=== PATIENT | female | born 1970 | race African-American/Black ===

== ENCOUNTER 2016-07-23 03:43 | Emergency (ER) | payer MEDICAID, OTHER ==
[~2016-07-23] VITALS: Ht 172.7 cm; Wt 108.9 kg
[2016-07-23 04:15] LABS: Basophils # (auto) 0.1 uL; Basophils % (auto) 0.4 % (0.0-2.0); DEFINITIVE VIEW TRANSMISSION; Eosinophils # (auto) 0.1 uL; Eosinophils % (auto) 0.9 % (0.0-7.0); Hematocrit 43.8 % (36.0-46.0); Hemoglobin 14.6 g/dL (12.2-16.2); Lymphocytes # (auto) 6.3 uL; Lymphocytes % (auto) 45.2 % (10.0-50.0); Mean Corpuscular Hgb Conc. 33.5 g/dL (32.0-36.0); Mean Corpuscular Volume 89.4 fL (80.0-100.0); Mean Platelet Volume 9.3 fL (7.4-10.4); Monocytes # (auto) 0.3 uL; Neutrophils # (auto) 7.2 uL; Neutrophils % (auto) 51.5 % (37.0-80.0); Platelet Count (auto) 305 10^3/uL (140-450); Red Cell Distribution Width 14.7 % (11.6-16.0)
[2016-07-23 04:31] LABS: INR 0.93 (0.9-1.15)
[2016-07-23 04:35] LABS: Albumin 3.7 g/dL (3.4-5.0); Alkaline Phosphatase 71 U/L (45-117); Anion Gap 10 (5-15); Aspartate Aminotransferase 25 U/L (15-37); BUN/Creatinine Ratio 15.3; Bilirubin, Total 0.3 mg/dL (0.2-1.0); Blood Urea Nitrogen 13 mg/dL (7-18); Calcium 9.5 mg/dL (8.5-10.1); Carbon Dioxide 26 mmol/L (21-32); Chloride 107 mmol/L (98-107); GFR African American 92 mL/min; GFR Non-African American 76 mL/min; Glucose 109 mg/dL (74-106); Potassium 4.1 mmol/L (3.5-5.1); Sodium 143 mmol/L (136-145); Total Protein 8.1 g/dL (6.4-8.2)
[2016-07-23] MEDS ORDERED: ONDANSETRON HCL 4 MG/2 ML VIAL IV ONE (05:15)
[2016-07-23] MEDS ORDERED: MORPHINE SULFATE 4 MG/ML SYRG IV ONE (05:15)
[2016-07-23 06:03] VITALS: BP 121/82
[2016-07-23] MEDS ORDERED: ASPirin 81 mg TAB PO ONE (06:15)
== END 2016-07-23 07:01 | disposition home or self-care (01) ==
LOC: ER 03:45
DX: R07.89 Other chest pain (principal); J20.9 Acute bronchitis, unspecified; F17.210 Nicotine dependence, cigarettes, uncomplicated; I10 Essential (primary) hypertension
CPT/HCPCS: 36415; 71010; 80053; 84484; 85025; 85610; 85730; 93005; 94761; 96374; 96375; 99285; J2270; J2405

== ENCOUNTER 2023-03-23 21:23 | Emergency (ER) | payer SELFPAY ==
[~2023-03-23] VITALS: Ht 167.6 cm; Wt 113.6 kg
[2023-03-23 21:36] VITALS: PULSE 107
[2023-03-23 21:49] VITALS: BP 115/76; RESP 16; O2SAT 97
[2023-03-23 23:01] LABS: Basophils # (auto) 0.1 10 ^3/uL (0-0.2); Basophils % (auto) 0.6 % (0.0-2.0); Eosinophils # (auto) 0.1 10 ^3/uL (0-0.8); Eosinophils % (auto) 1.1 % (0.0-7.0); Hematocrit 43.9 % (36.0-46.0); Hemoglobin 14.4 g/dL (12.2-16.2); Lymphocytes # (auto) 5.7 10 ^3/uL (0.4-5.4); Lymphocytes % (auto) 50.9 % (10.0-50.0); Mean Corpuscular Hemoglobin 30.1 pg (28.0-32.0); Mean Corpuscular Hgb Conc. 32.8 g/dL (32.0-36.0); Mean Corpuscular Volume 91.8 fL (80.0-100.0); Monocytes # (auto) 0.5 10 ^3/uL (0-1.3); Monocytes % (auto) 4.2 % (0.0-12.0); Neutrophils # (auto) 4.9 10 ^3/uL (1.6-8.6); Neutrophils % (auto) 43.2 % (37.0-80.0); Red Blood Cells 4.78 10^6/uL (4.0-5.20); Red Cell Distribution Width 14.2 % (11.8-14.3); White Blood Cell 11.3 10^3/uL (4.4-10.8)
[2023-03-23 23:19] LABS: INR 0.99 (0.9-1.15); Partial Thromboplastin Time 27.1 SEC (24.5-34.5); Prothrombin Time 10.4 sec (9.3-11.8)
[2023-03-23 23:23] LABS: Alanine Aminotransferase 33 U/L (7-40); Albumin 4.4 g/dL (3.2-4.8); Alkaline Phosphatase 72 U/L (46-116); Anion Gap 9 (5-15); Aspartate Aminotransferase 29 U/L (13-40); BUN/Creatinine Ratio 16.9 (10.0-20.0); Blood Urea Nitrogen 11 mg/dL (9-23); Calcium 9.3 mg/dL (8.7-10.4); Carbon Dioxide 24 mmol/L (20-30); Chloride 109 mmol/L (98-107); Glucose 116 mg/dL (74-106); Magnesium 2.2 mg/dL (1.6-2.6); Potassium 3.6 mmol/L (3.5-5.1); Sodium 142 mmol/L (136-145)
[2023-03-23 23:24] LABS: Bilirubin, Total 0.4 mg/dL (0.2-1.0)
== END 2023-03-23 23:19 | disposition left against medical advice (07) ==
LOC: ER 21:23 → EDBD 21:23 → ER 23:19
DX: R53.1 Weakness (principal); R20.0 Anesthesia of skin; I10 Essential (primary) hypertension; Z90.710 Acquired absence of both cervix and uterus; F17.210 Nicotine dependence, cigarettes, uncomplicated; Z53.29 Procedure and treatment not carried out because of patient's decision for other reasons
CPT/HCPCS: 36415; 71045; 80053; 83735; 83880; 84484; 85025; 85610; 85730; 93005

== ENCOUNTER 2025-02-05 08:31 | Inpatient (IN) | payer MEDICAID, OTHER ==
[~2025-02-05] VITALS: Ht 167.6 cm; Wt 106.0 kg
[2025-02-05] VITALS (9 sets, daily range): BP systolic 131–181; BP diastolic 75–114; PULSE 89–104; RESP 18–20; TEMP 97.8–98.8; O2SAT 95–100
[~2025-02-05 08:31] MED LIST: CYCL-839 PO; HYDR-4902 PO
[2025-02-05 09:21] LABS: Hematocrit 42.8 % (36.0-46.0); Hemoglobin 14.5 g/dL (12.2-16.2); Mean Corpuscular Hemoglobin 30.3 pg (28.0-32.0); Mean Corpuscular Volume 89.6 fL (80.0-100.0); Nucleated Red Blood Cells % 0.1 %
--- NOTE | 2025-02-05 09:29 | ED.PDOC ---
History of Present Illness HPI Comments Ms. Goodrich a 54-year-old female with prior medical history of hypertension, questionable CAD, and heavy tobacco use, who presents today with chief complaint of shortness of breath. The patient states she has had progressively worsening shortness of breath for the last 2 days initially on exertion now at rest associated with dry cough, wheezing, fatigue, and substernal chest pain described as pressure-like, nonradiating, 8/10 intensity, with no aggravating or relieving factors. She denies fever, nausea, vomiting, generalized body aches, peripheral edema, hemoptysis, and palpitations. Due to persistence of symptoms the patient presents today to the emergency department. On initial evaluation, the patient is afebrile, tachycardic, hypertensive, and saturating 95% on room air. She is able to ambulate with some shortness of breath on exertion, and is able to speak without issue. Chief Complaint: Shortness of Breath Time Seen by MD: 08:36 Primary Care Provider: UNKNOWN Reviewed Notes: Medications Allergies: Coded Allergies: NO KNOWN ALLERGIES (Unverified , 07/23/16) Home Meds Active Scripts Cyclobenzaprine Hcl (Cyclobenzaprine Hcl) 10 Mg Tab, 1 TAB PO Q8HPRN PRN, #15 TAB as needed for muscle spasm Prov:COMPA ZARATE NP 07/12/23 Hydrocodone-Acetaminophen (Hydrocodone Bitartrate/AC 5-325 mg) 1 Tab Tab, 1 TAB PO Q6HPRN PRN, #10 TAB as needed for pain Prov:COMPA ZARATE NP 07/12/23 Information Source: Patient Mode of Arrival: Ambulatory Severity: Mild Timing: Days Duration: Since onset Past Medical History PAST MEDICAL HISTORY: CAD, HTN Surgical History: Hysterectomy [employer] History: Uterine Fibroids Family History Family History: Reviewed,noncontributory to illness Social History Smoker: Greater Than 1 Pack/Day (The patient has smoked 1 pack of cigarettes a day for the last 40 years) Alcohol: Occasionally Drugs: Denies Drug Use Lives In: Home Constitutional: reports: fatigue; denies: chills, diaphoresis, fever, malaise, sweats, weakness EENTM: denies: blurred vision, ear bleeding, ear ringing, hearing loss, nasal discharge, nose congestion, throat pain Respiratory: reports: cough, SOB at rest, SOB with excertion, wheezing; denies: hemoptysis, orthopnea Cardiovascular: reports: chest pain, Dyspnea on exertion; denies: dizzy spells, diaphoresis, edema, left arm pain, lightheadedness, syncope Gastrointestinal: denies: abdomen distended, abdominal pain, constipated, diarrhea, dysphagia, hematemesis, melena, nausea, poor appetite, poor fluid intake, vomiting Genitourinary: denies: burning, dysuria, flank pain, frequency, hematuria, incontinence, pain, urgency Neurological: reports: speech problems; denies: dizziness, fainting, headache, numbness, paresthesia, pre-existing deficit, seizure, weakness Musculoskeletal: denies: back pain, joint pain, joint swelling, muscle pain, muscle stiffness, neck pain Integumetry: denies: bruises, dryness, laceration, lesions, lumps, rash, wounds Physical Exam General Appearance: Mild Distress, Obese HEENT: Normal ENT Inspection, PERRL/EOMI, Pharynx Normal Neck: Full Range of Motion, Non-Tender, Normal Inspection Respiratory: Chest Non-Tender, No Accessory Muscle Use, Wheezing (In lower lung wilkinson ) Cardiovascular: No Edema, No Murmur, Normal Peripheral Pulses, Regular Rate/Rhythm Breast Exam: Deferred Gastrointestinal: Non Tender, Normal Bowel Sounds, Soft Genitalia: Deferred Pelvic: Deferred Rectal: Deferred Extremities: Normal capillary refill, Normal inspection, Normal range of motion, Non-tender, No pedal edema Neurologic: Alert, Normal Affect, Normal Mood Cerebellar Function: Normal Reflexes: NOT DONE Skin: Normal Color Peripheral Pulses: 3+ dorsalis pedis (R), 3+ dorsalis pedis (L) Lymphatic: Other (No cervical adenopathy) Was a procedure done? Was a procedure done?: No EKG EKG : Pulse Rate (adult): 104 [place]: Normal Cardiac Rhythm: ST Block: LBBB Comments QTc 540 Differential Dx Considerations may include: Acute COPD exacerbation, Asthma, Bronchitis, Pneumonia, Influenza, ACS, NE, NSTEMI, GERD X-Ray, Labs, Meds, VS Vital Signs Date Time Temp Pulse Resp B/P (MAP) Pulse Ox O2 Delivery O2 Flow Rate FiO2 02/05/25 12:12 202/122 02/05/25 12:00 105 02/05/25 11:18 205/148 02/05/25 10:33 104 02/05/25 09:42 164/106 02/05/25 09:42 164/106 02/05/25 09:00 97.9 107 19 164/106 (125) 95 97.9 02/05/25 09:00 95 Room Air* 0 21 02/05/25 08:34 97.9 107 19 164/106 95 97.9 Lab Test 02/05/25 10:08 02/05/25 09:08 Range/Units Urine Color Light-orange Yellow Urine Clarity Turbid H Clear Urine pH 6.0 5.0-9.0 Urine Specific [place] 1.022 1.001-1.035 Urine Protein Trace H Negative Urine Ketones Trace Negative Urine Blood 1+ H Negative /uL Urine Nitrite Negative Negative Urine Bilirubin Negative Negative Urine Urobilinogen 2 H Negative mg/dL Urine Leukocyte Esterase 3+ Negative /uL Urine RBC 33 0 - 4 /hpf Urine Microscopic WBC 15 H 0-5 /HPF Urine Squamous Epithelial Cells Mod <5 /hpf Urine Bacteria Mod H None Seen /hpf Urine Mucus Few None Seen Urine Glucose Normal Normal mg/dL Troponin I High Sensitivity 46 *H 49 *H </=34 ng/L White Blood Count 8.9 4.4-10.8 10^3/uL Red Blood Count 4.77 4.0-5.20 10^6/uL Hemoglobin 14.5 12.2-16.2 g/dL Hematocrit 42.8 36.0-46.0 % Mean Corpuscular Volume 89.6 80.0-100.0 fL Mean Corpuscular Hemoglobin 30.3 28.0-32.0 pg Mean Corpuscular Hemoglobin Concent 33.8 32.0-36.0 g/dL Red Cell Distribution Width 14.4 H 11.8-14.3 % Platelet Count 288 140-450 10^3/uL Mean Platelet Volume 8.7 6.9-10.8 fL Neutrophils (%) (Auto) 47.9 37.0-80.0 % Lymphocytes (%) (Auto) 45.6 10.0-50.0 % Monocytes (%) (Auto) 4.6 0.0-12.0 % Eosinophils (%) (Auto) 1.0 0.0-7.0 % Basophils (%) (Auto) 0.9 0.0-2.0 % Neutrophils # (Auto) 4.3 1.6-8.6 10 ^3/uL Lymphocytes # (Auto) 4.1 0.4-5.4 10 ^3/uL Monocytes # (Auto) 0.4 0-1.3 10 ^3/uL Eosinophils # (Auto) 0.1 0-0.8 10 ^3/uL Basophils # (Auto) 0.1 0-0.2 10 ^3/uL Nucleated Red Blood Cells 0.1 % Sodium Level 143 136-145 mmol/L Potassium Level 4.1 3.5-5.1 mmol/L Chloride Level 109 H 98-107 mmol/L Carbon Dioxide Level 24 20-31 mmol/L Anion Gap 10 5-15 Blood Urea Nitrogen 9 9-23 mg/dL Creatinine 0.75 0.550-1.02 mg/dL Glomerular Filtration Rate Calc 93 >90 mL/min BUN/Creatinine Ratio 12.0 10.0-20.0 Serum Glucose 91 74-106 mg/dL Calcium Level 9.2 8.7-10.4 mg/dL B-Type Natriuretic Peptide 320.26 0-100 pg/mL Current Medications Medications (Trade) Dose Ordered Sig/Mere Route Start Time Stop Time Status Last Admin Ipratropium [place] (Atrovent Medneb) 0.5 mg ONCE ONCE NEB 02/05/25 09:00 02/05/25 09:17 DC 02/05/25 09:55 Levalbuterol HCl (Xopenex Medneb) 1.25 mg ONCE ONCE NEB 02/05/25 09:00 02/05/25 09:17 DC 02/05/25 09:56 Methylprednisolone Sodium Succinate (Solu Medrol) 125 mg ONCE ONCE IV 02/05/25 09:00 02/05/25 09:17 DC 02/05/25 09:33 Lisinopril (Zestril Tablet) 20 mg ONCE ONCE PO 02/05/25 09:45 02/05/25 09:46 DC 02/05/25 09:42 Hydrochlorothiazide (hydroCHLOROthiazide TABLET) 25 mg ONCE ONCE PO 02/05/25 09:45 02/05/25 09:46 DC 02/05/25 09:42 Clonidine HCl (Catapres Tablet) 0.2 mg ONCE ONCE PO 02/05/25 11:00 02/05/25 11:12 DC 02/05/25 11:18 Acetaminophen (Tylenol Tablet) 325 mg ONCE ONCE PO 02/05/25 11:00 02/05/25 11:12 DC 02/05/25 11:19 Ceftriaxone Sodium 50 ml @ 100 mls/hr ONCE ONCE IV 02/05/25 11:00 02/05/25 11:29 DC 02/05/25 11:22 Time of 1ST Reevaluation: 10:16 Reevaluation 1ST: Still ill, less SOB Time of 2ND Reevaluation: 12:26 Reevaluation 2ND: Unchanged Patient Education/Counseling: Diagnosis, Treatment Family Education/Counseling: No Family Present Comments The patient presented today with chief complaint of SOB On initial eval, the patient was afebrile, tachycardic, hypertensive, saturating 95% on RA. She was able to ambulate with some shortness of breath and was able to talk without difficulty. Physical exam is significant wheezing in bilateral lower lung wilkinson CBC and BMP within normal range, Initial troponins 49, BNP is 329. Chest Xray shows left mild lobe opacity which may favor atelectasis EKG shows sinus tachycardia with a LBBB and prolonged QTc of 540 IV methylprednisolone and nebulized breathing treatment with levalbuterol and ipratropium were given The patient stated she had not taken her BP medications for which HTZ 25 mg PO and Lisinopril 20 mg PO were given Blood pressure was not controlled with the above for which Clonidine 0.2 mg PO was given, subsequently Labetolol 20 mg IV was ordered UA significant for UTI for which one dose of ceftriaxone was given On re eval the patient states she still feels ill but that she feels she is breathing easier. The patient will be admitted for further cardiac work up and management SEPSIS Sepsis Screen Date sepsis recognized/suspect: Feb 05, 2025 Time Sepsis recognized/suspect: 0834 Recent Procedure: No On Antibiotic Therapy: No Respiratory Rate >20: No Heart Rate >90: Yes Temp<36 C (96.8 F) or >38.3 C: No SBP <90 or MAP <65 mmHG: No New Acute Mental Status Change: No Is the patient on CPAP, BIPAP,: No Physician Orders Electrocardigram (02/05/25 08:57) Chest Xray 1 View (02/05/25 08:57) Electrocardigram (02/05/25 09:57) Urine Bacterial Culture (02/05/25 10:52) Labetalol Hcl (Labetalol Hcl) (02/05/25 12:30) Vital Signs Date Time Temp Pulse Resp B/P (MAP) Pulse Ox O2 Delivery O2 Flow Rate FiO2 02/05/25 12:12 202/122 02/05/25 12:00 105 02/05/25 11:18 205/148 02/05/25 10:33 104 02/05/25 09:42 164/106 02/05/25 09:42 164/106 02/05/25 09:00 97.9 107 19 164/106 (125) 95 97.9 02/05/25 09:00 95 Room Air* 0 21 02/05/25 08:34 97.9 107 19 164/106 95 97.9 Laboratory Tests Test 02/05/25 09:08 White Blood Count 8.9 10^3/uL (4.4-10.8) Medications Medications Dose Ordered Sig/Mere Route Start Time Stop Time Status Last Admin Dose Admin Acetaminophen 325 mg ONCE ONCE PO 02/05/25 11:00 02/05/25 11:12 DC 02/05/25 11:19 Ceftriaxone Sodium 50 ml @ 100 mls/hr ONCE ONCE IV 02/05/25 11:00 02/05/25 11:29 DC 02/05/25 11:22 Clonidine HCl 0.2 mg ONCE ONCE PO 02/05/25 11:00 02/05/25 11:12 DC 02/05/25 11:18 Hydrochlorothiazide 25 mg ONCE ONCE PO 02/05/25 09:45 02/05/25 09:46 DC 02/05/25 09:42 Ipratropium [place] 0.5 mg ONCE ONCE NEB 02/05/25 09:00 02/05/25 09:17 DC 02/05/25 09:55 Levalbuterol HCl 1.25 mg ONCE ONCE NEB 02/05/25 09:00 02/05/25 09:17 DC 02/05/25 09:56 Lisinopril 20 mg ONCE ONCE PO 02/05/25 09:45 02/05/25 09:46 DC 02/05/25 09:42 Methylprednisolone Sodium Succinate 125 mg ONCE ONCE IV 02/05/25 09:00 02/05/25 09:17 DC 02/05/25 09:33 Departure 1 Departure Time of Disposition: 10:16 Impression: Primary Impression: COPD exacerbation Additional Impression: Chest pain Disposition: 30 STILL A PATIENT Admit to: Tele Condition: Stable Critical Care Note Critical Care Time?: No Stability Stability form required: JADE Fatima RESIDENT Feb 05, 2025 09:29
[2025-02-05 09:32] LABS: Potassium 4.1 mmol/L (3.5-5.1); Sodium 143 mmol/L (136-145)
[2025-02-05 09:33] LABS: Anion Gap 10 (5-15); Calcium 9.2 mg/dL (8.7-10.4); Carbon Dioxide 24 mmol/L (20-31)
[2025-02-05] MEDS: methylPREDNISolone SOD SUCC 125 MG/2 ML VL IV ONE (09:33)
[2025-02-05 09:36] LABS: Chloride 109 mmol/L (98-107)
[2025-02-05 09:38] LABS: BUN/Creatinine Ratio 12.0 (10.0-20.0); Glucose 91 mg/dL (74-106)
[2025-02-05 09:39] LABS: Blood Urea Nitrogen 9 mg/dL (9-23)
[2025-02-05] MEDS: LISINOPRIL 20 MG TAB PO ONE ×2 (09:42→13:32)
[2025-02-05] MEDS: hydroCHLOROthiazide 25 MG TAB PO ONE ×2 (09:42→13:30)
--- NOTE | 2025-02-05 09:53 | DVH ---
EXAM: XY CHEST XRAY 1 VIEW Indication: SOB Technique: Single frontal view of the chest was obtained Comparison: XY CHEST PORTABLE on DOS: 03/23/23 FINDINGS: Lines and Tubes: None Lungs: Left mid lung linear opacity favored to reflect atelectasis. Pleura: No effusion. No pneumothorax. Cardiomediastinal contours: Unremarkable Bones: No acute osseous abnormality. IMPRESSION: Left mid lung linear opacity favored to reflect atelectasis.
[2025-02-05] MEDS: IPRATROPIUM BROM 0.5 MG/2.5ML INH SOL NEB ONE (09:55)
[2025-02-05] MEDS: LEVALBUTEROL HCL 1.25 MG/3 ML NEB NEB ONE (09:56)
[2025-02-05 10:23] LABS: Urine Protein, UAD TRACE (Negative)
[2025-02-05] MEDS: ACETAMINOPHEN 325 MG TAB PO ONE (11:19)
[2025-02-05] MEDS ORDERED: ASPI1TAB20 PO (12:40)
[2025-02-05] MEDS ORDERED: LISI20TA56 PO (12:40)
[2025-02-05] MEDS ORDERED: HYDR25TA5 PO (12:40)
[2025-02-05] MEDS ORDERED: MORPHINE SULFATE INJ 2 MG/ml SYRG IV PRN (13:30)
[2025-02-05] MEDS ORDERED: ONDANSETRON HCL 4 MG/2 ML VIAL IV PRN (13:30)
[2025-02-05] MEDS ORDERED: NITROGLYCERIN 0.4 MG SL TAB SL PRN (13:30)
[2025-02-05] MEDS ORDERED: ACETAMINOPHEN 325 MG TAB PO PRN (13:30)
[2025-02-05] MEDS ORDERED: DOCUSATE SOD 100 MG CAP PO PRN (13:30)
--- NOTE | 2025-02-05 13:44 | DVHHP2 ---
History of Present Illness Reason for Visit: Shortness of breath History of Present Illness Vita South is a 54-year-old female with past medical history of hypertension, who came to the hospital with complaints of shortness of breath. Patient states she has been experiencing shortness of breath for about 2 days. She states she normally can ambulate well, go the grocery store and do her grocery shopping without any problems. However, these last 2 days she states is has been difficult just to walk around her house. About 1 year ago she was seen by cardiology for chest pain. She had an ECHO and stress test completed that she states came back normal. On assessment her oxygenation was 90-92% on room air, once she was speaking it dropped to 86-88%. Her work of breathing was increasing and it was visibly difficult for her to speak in full sentences. Cardiovascular: HTN Smoke: 1 pack per day ALCOHOL: occassional Drugs: None Lives: with Family Domestic Violence: Neg Review of Systems Constitutional: No: Fever, Chills, Sweats, Weakness, Malaise, Other Eyes: No: Pain, Vision change, Conjunctivae inflammation, Eyelid inflammation, Other, Redness ENT: No: Ear pain, Ear discharge, Nose pain, Nose discharge, Nose congestion, Mouth pain, Mouth swelling, Throat pain, Throat swelling, Other Respiratory: Shortness of breath, SOB with excertion; No: Cough, Dry, Wheezing, Hemoptysis, Pleuritic Pain, Sputum, Wheezing, Other Cardiovascular: No: Chest Pain, Palpitations, Orthopnea, Paroxysmal Noc. Dyspnea, Edema, Lt Headedness, Other Gastrointestinal: No: Nausea, Vomiting, Abdominal Pain, Diarrhea, Constipation, Melena, Hematochezia, Other Genitourinary: No Dysuria, No Frequency, No Incontinence, No Hematuria, No Retention, No Other Musculoskeletal: No: other, neck pain, shoulder pain, arm pain, back pain, hand pain, leg pain, foot pain Skin: No: Rash, Lesions, Jaundice, Bruising, Other Neurological: No: Weakness, Numbness, Incoordination, Change in speech, Confusion, Seizures, Other Allergies: Coded Allergies: NO KNOWN ALLERGIES (Unverified , 07/23/16) Medications Current Medications Medications Dose Ordered Sig/Mere Route Start Time Stop Time Status Last Admin Dose Admin Hydralazine HCl 10 mg Q6HP PRN IV 11/3/25 12:45 Clonidine HCl 0.2 mg Q6HP PRN PO 02/05/25 12:45 Aspirin 81 mg DAILY PO 02/06/25 10:00 Hydrochlorothiazide 25 mg DAILY PO 02/06/25 10:00 Lisinopril 20 mg DAILY PO 02/06/25 10:00 Acetaminophen/ Hydrocodone Bitart 1 tab Q4HP PRN PO 02/05/25 13:30 UNV Ondansetron HCl 4 mg Q4HP PRN IV 02/05/25 13:30 UNV Docusate Sodium 100 mg BIDPRN PRN PO 02/05/25 13:30 UNV Enoxaparin Sodium 40 mg DAILY SC 02/06/25 10:00 UNV Acetaminophen 650 mg Q6HP PRN PO 02/05/25 13:30 UNV Nitroglycerin 0.4 mg Q5MINP PRN SL 02/05/25 13:30 UNV Exam Vital Signs Vital Signs Date Time Temp Pulse Resp B/P (MAP) Pulse Ox O2 Delivery O2 Flow Rate FiO2 02/05/25 12:29 104 02/05/25 12:12 202/122 02/05/25 09:00 97.9 19 95 97.9 02/05/25 09:00 Room Air* 0 21 General Appearance: Alert, Oriented X3, Cooperative, moderate distress HEENT: Atraumatic, PERRLA, Other (Mucous membr dry) Respiratory: Other (Diminished breath sounds, increased work of breathing) Cardiovascular: Normal S1, Normal S2, Other (ST) Abdominal: Normal bowel sounds, Soft Extremities: No clubbing, No cyanosis, No edema, Normal pulses, No te nderness/swelling Skin: No rashes, No breakdown, No significant lesion Neuro: Normal gait, Normal speech, Strength at 5/5 X4 ext, Normal tone, Sensation intact Psych/Mental Status: Mental status NL, Mood NL Labs/Xrays Labs Test 02/05/25 10:08 02/05/25 09:08 Range/Units Urine Color Light-orange Yellow Urine Clarity Turbid H Clear Urine pH 6.0 5.0-9.0 Urine Specific [place] 1.022 1.001-1.035 Urine Protein Trace H Negative Urine Ketones Trace Negative Urine Blood 1+ H Negative /uL Urine Nitrite Negative Negative Urine Bilirubin Negative Negative Urine Urobilinogen 2 H Negative mg/dL Urine Leukocyte Esterase 3+ Negative /uL Urine RBC 33 0 - 4 /hpf Urine Microscopic WBC 15 H 0-5 /HPF Urine Squamous Epithelial Cells Mod <5 /hpf Urine Bacteria Mod H None Seen /hpf Urine Mucus Few None Seen Urine Glucose Normal Normal mg/dL Troponin I High Sensitivity 46 *H </=34 ng/L White Blood Count 8.9 4.4-10.8 10^3/uL Red Blood Count 4.77 4.0-5.20 10^6/uL Hemoglobin 14.5 12.2-16.2 g/dL Hematocrit 42.8 36.0-46.0 % Mean Corpuscular Volume 89.6 80.0-100.0 fL Mean Corpuscular Hemoglobin 30.3 28.0-32.0 pg Mean Corpuscular Hemoglobin Concent 33.8 32.0-36.0 g/dL Red Cell Distribution Width 14.4 H 11.8-14.3 % Platelet Count 288 140-450 10^3/uL Mean Platelet Volume 8.7 6.9-10.8 fL Neutrophils (%) (Auto) 47.9 37.0-80.0 % Lymphocytes (%) (Auto) 45.6 10.0-50.0 % Monocytes (%) (Auto) 4.6 0.0-12.0 % Eosinophils (%) (Auto) 1.0 0.0-7.0 % Basophils (%) (Auto) 0.9 0.0-2.0 % Neutrophils # (Auto) 4.3 1.6-8.6 10 ^3/uL Lymphocytes # (Auto) 4.1 0.4-5.4 10 ^3/uL Monocytes # (Auto) 0.4 0-1.3 10 ^3/uL Eosinophils # (Auto) 0.1 0-0.8 10 ^3/uL Basophils # (Auto) 0.1 0-0.2 10 ^3/uL Nucleated Red Blood Cells 0.1 % Sodium Level 143 136-145 mmol/L Potassium Level 4.1 3.5-5.1 mmol/L Chloride Level 109 H 98-107 mmol/L Carbon Dioxide Level 24 20-31 mmol/L Anion Gap 10 5-15 Blood Urea Nitrogen 9 9-23 mg/dL Creatinine 0.75 0.550-1.02 mg/dL Glomerular Filtration Rate Calc 93 >90 mL/min BUN/Creatinine Ratio 12.0 10.0-20.0 Serum Glucose 91 74-106 mg/dL Calcium Level 9.2 8.7-10.4 mg/dL B-Type Natriuretic Peptide 320.26 0-100 pg/mL EXAM: XY CHEST XRAY 1 VIEW FINDINGS: Lines and Tubes: None Lungs: Left mid lung linear opacity favored to reflect atelectasis. Pleura: No effusion. No pneumothorax. Cardiomediastinal contours: Unremarkable Bones: No acute osseous abnormality. IMPRESSION: Left mid lung linear opacity favored to reflect atelectasis. SEPSIS Sepsis Screen Date sepsis recognized/suspect: Feb 05, 2025 Time Sepsis recognized/suspect: 833 Recent Procedure: No On Antibiotic Therapy: No Respiratory Rate >20: No Heart Rate >90: Yes Temp<36 C (96.8 F) or >38.3 C: No SBP <90 or MAP <65 mmHG: No New Acute Mental Status Change: No Is the patient on CPAP, BIPAP,: No Physician Orders Electrocardigram (02/05/25 08:57) Chest Xray 1 View (02/05/25 08:57) Electrocardigram (02/05/25 09:57) Urine Bacterial Culture (02/05/25 10:52) Hydralazine Injection (Apresoline Inject (02/05/25 12:45) Clonidine Hcl Tablet (Catapres Tablet) (02/05/25 12:45) Aspirin Enteric Coated Tablet (Ecotrin E (02/06/25 10:00) Hydrochlorothiazide Tablet (Hydrochlorot (02/06/25 10:00) Lisinopril Tablet (Zestril Tablet) (02/06/25 10:00) Admit (02/05/25 13:17) Code Status (02/05/25 13:17) 2 Gm Sodium Diet (02/05/25 Lunch) Hydrocodone-Acet 5/325mg Tab ([place] /32 (02/05/25 13:30) Ondansetron Hcl (Zofran) (02/05/25 13:30) Docusate Sodium Capsule (Colace Capsule) (02/05/25 13:30) Enoxaparin Sodium (Lovenox) (02/06/25 10:00) Complete Blood Count (02/06/25 04:00) Comprehensive Metabolic Panel (02/06/25 04:00) Echo 2d Mode Cardiac Dop (02/05/25 13:17) Condition: Serious (02/05/25 13:17) Acetaminophen Tablet (Tylenol Tablet) (02/05/25 13:30) Nitroglycerin Sublingual (Ntrostat Subli (02/05/25 13:30) Morphine Sulfate Injection (02/05/25 13:30) Stat Ekg For Chest Pain (02/05/25 13:17) Notify Md Of Changes From Base (02/05/25 13:17) Entry Level Account Executive For 24 Hours (02/05/25 13:17) Emergency Dysrhythmia Protocol (02/05/25 13:17) Rhythm Strips Once Every Shift (02/05/25 13:17) Oxygen By Nasal Cannula (02/05/25 13:17) Albuterol Medneb (Ventolin Medneb) (02/05/25 18:00) Ipratropium Medneb (Atrovent Medneb) (02/05/25 18:00) Vital Signs Date Time Temp Pulse Resp B/P (MAP) Pulse Ox O2 Delivery O2 Flow Rate FiO2 02/05/25 12:29 104 02/05/25 12:12 202/122 02/05/25 12:00 105 02/05/25 11:18 205/148 02/05/25 10:33 104 02/05/25 09:42 164/106 02/05/25 09:42 164/106 02/05/25 09:00 97.9 107 19 164/106 (125) 95 97.9 02/05/25 09:00 95 Room Air* 0 21 02/05/25 08:34 97.9 107 19 164/106 95 97.9 Laboratory Tests Test 02/05/25 09:08 White Blood Count 8.9 10^3/uL (4.4-10.8) Medications Medications Dose Ordered Sig/Mere Route Start Time Stop Time Status Last Admin Dose Admin Acetaminophen 325 mg ONCE ONCE PO 02/05/25 11:00 02/05/25 11:12 DC 02/05/25 11:19 325 MG Ceftriaxone Sodium 50 ml @ 100 mls/hr ONCE ONCE IV 02/05/25 11:00 02/05/25 11:29 DC 02/05/25 11:22 100 MLS/HR Clonidine HCl 0.2 mg ONCE ONCE PO 02/05/25 11:00 02/05/25 11:12 DC 02/05/25 11:18 0.2 MG Hydrochlorothiazide 25 mg ONCE ONCE PO 02/05/25 09:45 02/05/25 09:46 DC 02/05/25 09:42 25 MG Ipratropium [place] 0.5 mg ONCE ONCE NEB 02/05/25 09:00 02/05/25 09:17 DC 02/05/25 09:55 0.5 MG Levalbuterol HCl 1.25 mg ONCE ONCE NEB 02/05/25 09:00 02/05/25 09:17 DC 02/05/25 09:56 1.25 MG Lisinopril 20 mg ONCE ONCE PO 02/05/25 09:45 02/05/25 09:46 DC 02/05/25 09:42 20 MG Methylprednisolone Sodium Succinate 125 mg ONCE ONCE IV 02/05/25 09:00 02/05/25 09:17 DC 02/05/25 09:33 125 MG Assessment/Plan Assessment/Plan Assessment: Acute respiratory failure with hypoxemia, Hypertensive urgency, Elevated D-Dimer, Elevated troponin, Plan: Admit to Tele, Supplemental oxygen as needed, breathing treatments, PRN antihypertensives, IV steroids, ECHO, D-Dimer, Bilateral lower extremity ultrasound, CT angio of chest to R/O PE, Home medications reconciled, Plan discussed with: Patient My Orders Orders - SRIKANTH PALOMINO CONTINUOUS IMPROVEMENT SPECIALIST Procedure Category Date Status Time Hydralazine Injection PHA 02/05/25 In Process (Apresoline Inject 12:45 Clonidine Hcl Tablet PHA 02/05/25 In Process (Catapres Tablet) 12:45 Aspirin Enteric PHA 02/06/25 In Process Coated Tablet 10:00 Hydrochlorothiazide PHA 02/06/25 In Process Tablet (Hydrochlorot 10:00 Lisinopril Tablet PHA 02/06/25 In Process (Zestril Tablet) 10:00 Admit ADMIT 02/05/25 Transmitted 13:17 Code Status CODE 02/05/25 Transmitted 13:17 2 Gm Sodium Diet DIET 02/05/25 Transmitted Lunch Hydrocodone-Acet PHA 02/05/25 Logged 5/325mg Tab ([place] 13:30 Ondansetron Hcl PHA 02/05/25 Logged (Zofran) 13:30 Docusate Sodium PHA 02/05/25 Logged Capsule (Colace 13:30 Enoxaparin Sodium PHA 02/06/25 Logged (Lovenox) 10:00 Complete Blood Count LAB 02/06/25 Verified 04:00 Comprehensive LAB 02/06/25 Verified Metabolic Panel 04:00 Echo 2d Mode Cardiac US 02/05/25 Logged DOP 13:17 Condition: Serious SERGIO 02/05/25 In Process 13:17 Acetaminophen Tablet PHA 02/05/25 Logged (Tylenol Tablet) 13:30 Nitroglycerin PHA 02/05/25 Transmitted Sublingual (Ntrostat 13:30 Morphine Sulfate PHA 02/05/25 Transmitted Injection 13:30 Stat Ekg For Chest SERGIO 02/05/25 In Process Pain 13:17 Notify Md Of Changes SERGIO 02/05/25 In Process From Base 13:17 Entry Level Account Executive For [facility] 02/05/25 In Process 24 Hours 13:17 Emergency Dysrhythmia [facility] 02/05/25 In Process Protocol 13:17 Rhythm Strips Once [facility] 02/05/25 In Process Every Shift 13:17 Oxygen By Nasal RT 02/05/25 Transmitted Cannula 13:17 Albuterol Medneb PHA 02/05/25 Transmitted (Ventolin Medneb) 18:00 Ipratropium Medneb PHA 02/05/25 Transmitted (Atrovent Medneb) 18:00 Date of Service: Feb 05, 2025 Billing Provider: SRIKANTH PALOMINO Common Visit Codes: 05102-FDMALIM INP/OBS CARE (HIGH) SRIKANTH PALOMINO Feb 05, 2025 13:44
[2025-02-05] MEDS: LABETALOL HCL 20 MG/4 ML VL IV ONE (14:25)
[2025-02-05] MEDS: HYDROcodone-ACET 5/325MG TAB PO PRN (14:25)
--- NOTE | 2025-02-05 19:41 | DVH ---
Bilateral lower extremity venous duplex Clinical History: R/O DVT Comparison: US RT LOWER DVT on DOS: 07/11/23 Technique: Duplex Doppler evaluation of the deep venous systems of both lower extremities from the common femora l veins to the popliteal veins including color Doppler and spectral/pulsed waveform analysis was perf ormed. Findings: RIGHT SIDE: The common femoral vein demonstrates appropriate compressibility and waveform variability. There is compressibility/patency of the great saphenous vein at the proximal thigh. The femoral vein demonstrates appropriate compressibility and waveform variability. The deep femoral vein demonstrates appropriate compressibility and waveform variability. The popliteal vein demonstrates appropriate compressibility and waveform variability. There is normal compressibility at the tibioperoneal trunk. LEFT SIDE: The common femoral vein demonstrates appropriate compressibility and waveform variability. There is compressibility/patency of the great saphenous vein at the proximal thigh. The femoral vein demonstrates appropriate compressibility and waveform variability. The deep femoral vein demonstrates appropriate compressibility and waveform variability. The popliteal vein demonstrates appropriate compressibility and waveform variability. There is normal compressibility at the tibioperoneal trunk. Impression: 1. No right or left femoropopliteal venous thrombosis.
[2025-02-05] MEDS: IPRATROPIUM BROM 0.5 MG/2.5ML INH SOL NEB SCH (19:47)
[2025-02-05] MEDS: ALBUTEROL SULF 2.5 MG/0.5ML(0.5%) NEB SOLN NEB SCH (19:47)
--- NOTE | 2025-02-05 21:03 | DVHSR ---
APPROVED REPORT EXAM: Two-dimensional and M-mode echocardiogram with Doppler and color Doppler. Blood Pressure: 202/122 mmHg INDICATION Acute repiratory failure with hypoxemia Elevated troponin RISK FACTORS Obesity: Height: 5'6", Weight: 227 DIMENSIONS LVDd4.1 (3.8-5.7cm)LA (2D)4.1 (1.9-4.0cm)Aortic Root3.3 (2.0-3.7cm) LVDs3.3 (2.5-4.0cm)LA (MM) (1.9-4.0cm)Aortic Cusp Exc1.8 (1.5-2.0cm) EF (%) 45.0 (55-70%)Rt. Atrium4.1 (1.9-4.0cm)Asc. Aorta cm IVSd1.5 (0.7-1.1cm)RV (D) (1.8-2.4cm) PWd1.4 (0.7-1.1cm) Mitral Valve MitralMitral Stenosis E/A ratio0.02D MVAcm2 Aortic Valve Aortic ValveAortic Stenosis V11.15m/Byron Mean GR.7mmHg V21.85m/Byron Peak GR.14mmHg LVOT Diameter2.0 (1.8-2.4cm)Doppler AVA1.95cm2 Pulmonic Valve V20.95m/s Tricuspid Valve TR Velocity3.33m/s [id number] Other Information Technically limited study due to body habitus, patient sitting up. Conclusion MODERATE DEGREE LVH AND MILD LV DIASTOLIC DYSFUNCTION LV EF IS 60% AND IS NORMAL MODERATELY DILATED RV AND RA MODERATELY SEVERE PULMONARY HYPERTENSION RVSP IS 52 MM OF HG AND IS MODERATELY HIGH MODERATE DEGREE AORTIC REGURGITATION NO EFFUSION GROSSLY NORMAL VALVES
[2025-02-05] MEDS: MELATONIN 5 MG TAB PO SCH (21:40)
[2025-02-05] MEDS: methylPREDNISolone SOD SUCC 40 MG/ML VL IV SCH (21:41)
--- NOTE | 2025-02-05 23:28 | DVH ---
CTA Chest with intravenous contrast INDICATION: R/O PE. Chest pain. COMPARISON: XY CHEST XRAY 1 VIEW on DOS: 02/05/25, XY CHEST PORTABLE on DOS: 03/23/23 TECHNIQUE: Multidetector spiral CTA of the chest was performed of the chest with intravenous contrast . PULMONARY ANGIOGRAPHY PROTOCOL was utilized using a bolus-tracking technique centered on the main p ulmonary artery. Axial, coronal and sagittal multiplanar and MIP reformats were performed. Radiation Dose : 1. Chest: CTDI volume is 26.9 mGy. Dose-length product is 1121.31 mGy*cm The dose indicators for CT are the volume Computed Tomography (CT) Dose Index (CTDIvol) and the Dose Length Product (DLP), and are measured in units of mGy and mGy-cm, respectively. These indicators are not patient dose, but values generated from the CT scanner acquisition factors. The report includes radiation exposure data for exposures received during this examination. Findings: Pulmonary artery: No pulmonary embolism Lower neck: Normal thyroid. Lungs: No focal consolidation, pleural effusion or pneumothorax. Mild diffuse interlobular septal thi ckening with hazy ground-glass opacity throughout both lungs. Heart/Vascular Structures: Normal heart size. No pericardial effusion. Lymph Nodes: Multiple enlarged mediastinal and bilateral hilar lymph nodes. For example, a right uppe r paratracheal lymph node measuring 1.9 cm and right lower paratracheal lymph node measuring 1.5 cm. Pleura: Small bilateral pleural effusions. Musculoskeletal: No acute osseous abnormality. Soft tissues: Normal. Upper abdomen: Limited portions of the upper abdomen are unremarkable. IMPRESSION: No pulmonary embolus. Mild pulmonary edema with small bilateral pleural effusions. Mediastinal and bilateral hilar adenopathy. The differential includes reactive adenopathy, lymphoma, or metastatic disease. Suggest elective/nonemergent CT of the neck as well as a CT of the abdomen and pelvis for further assessment. All suggest a follow-up CT of the chest in approximately 3 months for reassessment.
[2025-02-06] VITALS (16 sets, daily range): BP systolic 139–160; BP diastolic 73–94; PULSE 94–109; RESP 14–20; TEMP 97.5–98.9; O2SAT 92–100
[2025-02-06 07:20] LABS: Hematocrit 40.3 % (36.0-46.0); Hemoglobin 13.3 g/dL (12.2-16.2); Mean Corpuscular Hemoglobin 30.5 pg (28.0-32.0); Mean Corpuscular Volume 92.1 fL (80.0-100.0); Nucleated Red Blood Cells % 0.2 %
[2025-02-06 07:35] LABS: Alanine Aminotransferase 21 U/L (7-40); Alkaline Phosphatase 72 U/L (46-116); Anion Gap 12 (5-15); BUN/Creatinine Ratio 10.5 (10.0-20.0); Blood Urea Nitrogen 9 mg/dL (9-23); Calcium 9.4 mg/dL (8.7-10.4); Carbon Dioxide 20 mmol/L (20-31); Chloride 106 mmol/L (98-107); Potassium 3.9 mmol/L (3.5-5.1); Sodium 138 mmol/L (136-145); Total Protein 6.7 g/dL (5.7-8.2)
[2025-02-06 07:36] LABS: Albumin 4.0 g/dL (3.2-4.8); Glucose 130 mg/dL (74-106)
[2025-02-06 07:37] LABS: Bilirubin, Total 0.5 mg/dL (0.2-1.0)
[2025-02-06] MEDS: ASPirin-EC 81 mg tab PO SCH (09:36)
[2025-02-06] MEDS: LISINOPRIL 20 MG TAB PO SCH (09:37)
[2025-02-06] MEDS: hydroCHLOROthiazide 25 MG TAB PO SCH (09:37)
[2025-02-06] MEDS: ENOXAPARIN SOD 40 MG/0.4 ML SYRINGE SC SCH (09:38)
--- NOTE | 2025-02-06 10:35 | ECG ---
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
[2025-02-06] MEDS: FUROSEMIDE 20 MG/2 ML VIAL IV ONE (10:52)
--- NOTE | 2025-02-06 13:20 | DVHPN2 ---
Subjective BP is better Reviewed: H&P Changes from previous H/P or p: No Changes Eyes: No Pain, No Vision change, No Conjunctivae inflammation, No Eyelid inflammation, No Other, No Redness ENT: No Ear pain, No Ear discharge, No Nose pain, No Nose discharge, No Nose congestion, No Mouth pain, No Mouth swelling, No Throat pain, No Throat swelling, No Other Cardiovascular: No Chest Pain, No Palpitations, No Orthopnea, No Paroxysmal Noc. Dyspnea, No Edema, No Lt Headedness, No Other Respiratory: No Cough, No Dry; Shortness of breath, SOB with excertion; No Wheezing, No Hemoptysis, No Pleuritic Pain, No Sputum, No Other Gastrointestinal: No Nausea, No Vomiting, No Abdominal Pain, No Diarrhea, No Constipation, No Melena, No Hematochezia, No Other Genitourinary: No Dysuria, No Frequency, No Incontinence, No Hematuria, No Retention, No Other Musculoskeletal: No other, No neck pain, No shoulder pain, No arm pain, No back pain, No hand pain, No leg pain, No foot pain Skin: No Rash, No Lesions, No Jaundice, No Bruising, No Other Objective Vitals Vital Signs Date Time Temp Pulse Resp B/P (MAP) Pulse Ox O2 Delivery O2 Flow Rate FiO2 02/06/25 12:48 97.9 97 18 160/90 (113) 96 97.9 02/06/25 10:00 Nasal Cannula* 1 24 Intake/Output Intake and Output 02/06/25 07:00 Intake Total 950 ml Balance 950 ml Intake Oral 900 ml IV Total 50 ml # Voids 2 General Appearance: Alert, Oriented X3 HEENT: Atraumatic Lungs: Clear to auscultation Cardiovascular: Regular rate, Normal S1, Normal S2 Medications Current Medications Medications Dose Ordered Sig/Mere Route Start Time Stop Time Status Last Admin Dose Admin Hydralazine HCl 10 mg Q6HP PRN IV 02/05/25 12:45 Clonidine HCl 0.2 mg Q6HP PRN PO 02/05/25 12:45 02/05/25 16:08 0.2 MG Aspirin 81 mg DAILY PO 02/06/25 10:00 02/06/25 09:36 81 MG Hydrochlorothiazide 25 mg DAILY PO 02/06/25 10:00 02/06/25 09:37 25 MG Lisinopril 20 mg DAILY PO 02/06/25 10:00 02/06/25 09:37 20 MG Acetaminophen/ Hydrocodone Bitart 1 tab Q4HP PRN PO 02/05/25 13:30 02/06/25 06:48 1 TAB Ondansetron HCl 4 mg Q4HP PRN IV 02/05/25 13:30 Docusate Sodium 100 mg BIDPRN PRN PO 02/05/25 13:30 Enoxaparin Sodium 40 mg DAILY SC 02/06/25 10:00 02/06/25 09:38 40 MG Acetaminophen 650 mg Q6HP PRN PO 02/05/25 13:30 Nitroglycerin 0.4 mg Q5MINP PRN SL 02/05/25 13:30 Morphine Sulfate 2 mg Q30M PRN IV 02/05/25 13:30 Albuterol 2.5 mg Q6HWA [facility] 02/05/25 18:00 02/06/25 11:36 2.5 MG Ipratropium [place] 0.5 mg Q6HWA [facility] 02/05/25 18:00 02/06/25 11:36 0.5 MG Melatonin 10 mg HS PO 02/05/25 22:00 02/05/25 21:40 10 MG Methylprednisolone Sodium Succinate 40 mg BID IV 02/05/25 22:00 02/06/25 09:38 40 MG Laboratory Results Laboratory Tests 02/06/25 05:56 Chemistry Test 02/06/25 05:56 Albumin 4.0 g/dL (3.2-4.8) Calcium Level 9.4 mg/dL (8.7-10.4) Total Protein 6.7 g/dL (5.7-8.2) Coagulation Test 02/05/25 14:22 D-Dimer, Quantitative 2.08 mg/L FEU (0.0-0.49) H LFT Test 02/06/25 05:56 Alanine Aminotransferase (ALT) 21 U/L (7-40) Alkaline Phosphatase 72 U/L (46-116) Aspartate Amino Transferase (AST) 21 U/L (13-40) Total Bilirubin 0.5 mg/dL (0.2-1.0) Urinalysis Test 02/05/25 10:08 Urine Color Light-orange (Yellow) Urine Clarity Turbid (Clear) H Urine pH 6.0 (5.0-9.0) Urine Specific [place] 1.022 (1.001-1.035) Urine Protein Trace (Negative) H Urine Ketones Trace (Negative) Urine Blood 1+ /uL (Negative) H Urine Nitrite Negative (Negative) Urine Bilirubin Negative (Negative) Urine Urobilinogen 2 mg/dL (Negative) H Urine Leukocyte Esterase 3+ /uL (Negative) Urine RBC 33 /hpf (0 - 4) Urine Microscopic WBC 15 /HPF (0-5) H Urine Squamous Epithelial Cells Mod /hpf (<5) Urine Bacteria Mod /hpf (None Seen) H Urine Mucus Few (None Seen) Urine Glucose Normal mg/dL (Normal) Microbiology Microbiology Date/Time Source Procedure Growth Status 02/05/25 10:08 Voided Urine Urine Culture - Preliminary Resulted Assessment/Plan Assessment/Plan Acute respiratory failure with hypoxemia, Hypertensive urgency, COPD exacerbation Possible HF exacerbation IV steroids IV abx IV lasix Echo ordered Plan discussed with: Patient Date of Service: Feb 06, 2025 Billing Provider: JOAQUIN SOLIS MD Common Visit Codes: [id number] INP/OBS CARE(HIGH) JOAQUIN SOLIS MD Feb 06, 2025 13:20
[2025-02-07] VITALS (18 sets, daily range): BP systolic 137–162; BP diastolic 85–109; PULSE 72–110; RESP 16–22; TEMP 97.6–98.1; O2SAT 92–100
--- NOTE | 2025-02-07 12:31 | DVHPN2 ---
Subjective BP is better and sob better Reviewed: H&P Changes from previous H/P or p: No Changes Eyes: No Pain, No Vision change, No Conjunctivae inflammation, No Eyelid inflammation, No Other, No Redness ENT: No Ear pain, No Ear discharge, No Nose pain, No Nose discharge, No Nose congestion, No Mouth pain, No Mouth swelling, No Throat pain, No Throat swelling, No Other Cardiovascular: No Chest Pain, No Palpitations, No Orthopnea, No Paroxysmal Noc. Dyspnea, No Edema, No Lt Headedness, No Other Respiratory: No Cough, No Dry; Shortness of breath, SOB with excertion; No Wheezing, No Hemoptysis, No Pleuritic Pain, No Sputum, No Other Gastrointestinal: No Nausea, No Vomiting, No Abdominal Pain, No Diarrhea, No Constipation, No Melena, No Hematochezia, No Other Genitourinary: No Dysuria, No Frequency, No Incontinence, No Hematuria, No Retention, No Other Musculoskeletal: No other, No neck pain, No shoulder pain, No arm pain, No back pain, No hand pain, No leg pain, No foot pain Skin: No Rash, No Lesions, No Jaundice, No Bruising, No Other Objective Vitals Vital Signs Date Time Temp Pulse Resp B/P (MAP) Pulse Ox O2 Delivery O2 Flow Rate FiO2 02/07/25 11:48 86 18 100 02/07/25 11:42 Room Air 0.0 02/07/25 11:42 21 02/07/25 09:31 157/95 02/07/25 09:00 98.0 98.0 Intake/Output Intake and Output 02/07/25 05:00 Intake Total 1520 ml Balance 1520 ml Intake Oral 1520 ml # Voids 6 General Appearance: Alert, Oriented X3 HEENT: Atraumatic Lungs: Clear to auscultation Cardiovascular: Regular rate, Normal S1, Normal S2 Medications Current Medications Medications Dose Ordered Sig/Mere Route Start Time Stop Time Status Last Admin Dose Admin Hydralazine HCl 10 mg Q6HP PRN IV 02/05/25 12:45 Clonidine HCl 0.2 mg Q6HP PRN PO 02/05/25 12:45 02/07/25 06:24 0.2 MG Aspirin 81 mg DAILY PO 02/06/25 10:00 02/07/25 09:27 81 MG Hydrochlorothiazide 25 mg DAILY PO 02/06/25 10:00 02/07/25 09:31 25 MG Lisinopril 20 mg DAILY PO 02/06/25 10:00 02/07/25 09:31 20 MG Acetaminophen/ Hydrocodone Bitart 1 tab Q4HP PRN PO 02/05/25 13:30 02/07/25 09:46 1 TAB Ondansetron HCl 4 mg Q4HP PRN IV 02/05/25 13:30 Docusate Sodium 100 mg BIDPRN PRN PO 02/05/25 13:30 Enoxaparin Sodium 40 mg DAILY SC 02/06/25 10:00 02/07/25 09:28 40 MG Acetaminophen 650 mg Q6HP PRN PO 02/05/25 13:30 Nitroglycerin 0.4 mg Q5MINP PRN SL 02/05/25 13:30 Morphine Sulfate 2 mg Q30M PRN IV 02/05/25 13:30 Albuterol 2.5 mg Q6HWA [facility] 02/05/25 18:00 02/07/25 11:42 2.5 MG Ipratropium [place] 0.5 mg Q6HWA NEB 02/05/25 18:00 02/07/25 11:42 0.5 MG Melatonin 10 mg HS PO 02/05/25 22:00 02/06/25 21:37 10 MG Methylprednisolone Sodium Succinate 40 mg BID IV 02/05/25 22:00 02/07/25 09:27 40 MG Laboratory Results Laboratory Tests 02/06/25 05:56 Urinalysis Test 02/05/25 10:08 Urine Color Light-orange (Yellow) Urine Clarity Turbid (Clear) H Urine pH 6.0 (5.0-9.0) Urine Specific [place] 1.022 (1.001-1.035) Urine Protein Trace (Negative) H Urine Ketones Trace (Negative) Urine Blood 1+ /uL (Negative) H Urine Nitrite Negative (Negative) Urine Bilirubin Negative (Negative) Urine Urobilinogen 2 mg/dL (Negative) H Urine Leukocyte Esterase 3+ /uL (Negative) Urine RBC 33 /hpf (0 - 4) Urine Microscopic WBC 15 /HPF (0-5) H Urine Squamous Epithelial Cells Mod /hpf (<5) Urine Bacteria Mod /hpf (None Seen) H Urine Mucus Few (None Seen) Urine Glucose Normal mg/dL (Normal) Microbiology Microbiology Date/Time Source Procedure Growth Status 02/05/25 10:08 Voided Urine Urine Culture - Final Complete Assessment/Plan Assessment/Plan Acute respiratory failure with hypoxemia, Hypertensive urgency, COPD exacerbation Acute diastolic HF exacerbation Moderate pulmonary hypertension IV steroids IV abx IV lasix Echo normal EF with mod-sever hypertension Dispo: possible DC tomorrow Plan discussed with: Patient My Orders Orders - JOAQUIN SOLIS MD Procedure Category Date Status Time Basic Metabolic Panel LAB 02/08/25 Verified 05:00 Basic Metabolic Panel LAB 02/09/25 Verified 05:00 Basic Metabolic Panel LAB 02/10/25 Verified 05:00 Basic Metabolic Panel LAB 02/11/25 Verified 05:00 Basic Metabolic Panel LAB 02/12/25 Verified 05:00 Basic Metabolic Panel LAB 02/13/25 Verified 05:00 Basic Metabolic Panel LAB 02/14/25 Verified 05:00 Date of Service: Feb 07, 2025 Billing Provider: JOAQUIN SOLIS MD Common Visit Codes: [id number] INP/OBS CARE(HIGH) JOAQUIN SOLIS MD Feb 07, 2025 12:31
[2025-02-08] VITALS (17 sets, daily range): BP systolic 134–156; BP diastolic 89–100; PULSE 69–97; RESP 16–22; TEMP 97.6–97.9; O2SAT 96–100
[2025-02-08 07:25] LABS: Anion Gap 9 (5-15); Carbon Dioxide 25 mmol/L (20-31); Chloride 105 mmol/L (98-107); Potassium 4.3 mmol/L (3.5-5.1); Sodium 139 mmol/L (136-145)
[2025-02-08 07:26] LABS: Calcium 9.6 mg/dL (8.7-10.4)
[2025-02-08 07:31] LABS: Blood Urea Nitrogen 17 mg/dL (9-23)
[2025-02-08 07:38] LABS: BUN/Creatinine Ratio 19.3 (10.0-20.0); Glucose 106 mg/dL (74-106)
[2025-02-08] MEDS: IOHEXOL 350 MG/ML 100ML IJ ONE (07:49)
--- NOTE | 2025-02-08 09:45 | DVHPN2 ---
Subjective Much better with less SOB Reviewed: H&P Changes from previous H/P or p: No Changes Eyes: No Pain, No Vision change, No Conjunctivae inflammation, No Eyelid inflammation, No Other, No Redness ENT: No Ear pain, No Ear discharge, No Nose pain, No Nose discharge, No Nose congestion, No Mouth pain, No Mouth swelling, No Throat pain, No Throat swelling, No Other Cardiovascular: No Chest Pain, No Palpitations, No Orthopnea, No Paroxysmal Noc. Dyspnea, No Edema, No Lt Headedness, No Other Respiratory: No Cough, No Dry; Shortness of breath, SOB with excertion; No Wheezing, No Hemoptysis, No Pleuritic Pain, No Sputum, No Other Gastrointestinal: No Nausea, No Vomiting, No Abdominal Pain, No Diarrhea, No Constipation, No Melena, No Hematochezia, No Other Genitourinary: No Dysuria, No Frequency, No Incontinence, No Hematuria, No Retention, No Other Musculoskeletal: No other, No neck pain, No shoulder pain, No arm pain, No back pain, No hand pain, No leg pain, No foot pain Skin: No Rash, No Lesions, No Jaundice, No Bruising, No Other Objective Vitals Vital Signs Date Time Temp Pulse Resp B/P (MAP) Pulse Ox O2 Delivery O2 Flow Rate FiO2 02/08/25 09:26 147/91 02/08/25 08:30 97.6 86 18 98 97.6 02/08/25 06:54 Nasal Cannula* 2 28 Intake/Output Intake and Output 02/08/25 07:00 Intake Total 1750 ml Balance 1750 ml Intake Oral 1750 ml # Voids 6 General Appearance: Alert, Oriented X3 HEENT: Atraumatic Lungs: Clear to auscultation Cardiovascular: Regular rate, Normal S1, Normal S2 Medications Current Medications Medications Dose Ordered Sig/Mere Route Start Time Stop Time Status Last Admin Dose Admin Hydralazine HCl 10 mg Q6HP PRN IV 02/05/25 12:45 Clonidine HCl 0.2 mg Q6HP PRN PO 02/05/25 12:45 02/07/25 12:36 0.2 MG Aspirin 81 mg DAILY PO 02/06/25 10:00 02/08/25 09:26 81 MG Hydrochlorothiazide 25 mg DAILY PO 02/06/25 10:00 02/08/25 09:26 25 MG Lisinopril 20 mg DAILY PO 02/06/25 10:00 02/08/25 09:26 20 MG Acetaminophen/ Hydrocodone Bitart 1 tab Q4HP PRN PO 02/05/25 13:30 02/07/25 21:39 1 TAB Ondansetron HCl 4 mg Q4HP PRN IV 02/05/25 13:30 Docusate Sodium 100 mg BIDPRN PRN PO 02/05/25 13:30 Enoxaparin Sodium 40 mg DAILY SC 02/06/25 10:00 02/08/25 09:27 40 MG Acetaminophen 650 mg Q6HP PRN PO 02/05/25 13:30 Nitroglycerin 0.4 mg Q5MINP PRN SL 02/05/25 13:30 Morphine Sulfate 2 mg Q30M PRN IV 02/05/25 13:30 Albuterol 2.5 mg Q6HWA [facility] 02/05/25 18:00 02/08/25 06:54 2.5 MG Ipratropium [place] 0.5 mg Q6HWA [facility] 02/05/25 18:00 02/08/25 06:54 0.5 MG Melatonin 10 mg HS PO 02/05/25 22:00 02/07/25 21:27 10 MG Methylprednisolone Sodium Succinate 40 mg BID IV 02/05/25 22:00 02/08/25 09:26 40 MG Laboratory Results Laboratory Tests 02/06/25 05:56 02/08/25 05:52 Chemistry Test 02/08/25 05:52 Calcium Level 9.6 mg/dL (8.7-10.4) Urinalysis Test 02/05/25 10:08 Urine Color Light-orange (Yellow) Urine Clarity Turbid (Clear) H Urine pH 6.0 (5.0-9.0) Urine Specific [place] 1.022 (1.001-1.035) Urine Protein Trace (Negative) H Urine Ketones Trace (Negative) Urine Blood 1+ /uL (Negative) H Urine Nitrite Negative (Negative) Urine Bilirubin Negative (Negative) Urine Urobilinogen 2 mg/dL (Negative) H Urine Leukocyte Esterase 3+ /uL (Negative) Urine RBC 33 /hpf (0 - 4) Urine Microscopic WBC 15 /HPF (0-5) H Urine Squamous Epithelial Cells Mod /hpf (<5) Urine Bacteria Mod /hpf (None Seen) H Urine Mucus Few (None Seen) Urine Glucose Normal mg/dL (Normal) Microbiology Microbiology Date/Time Source Procedure Growth Status 02/05/25 10:08 Voided Urine Urine Culture - Final Complete Assessment/Plan Assessment/Plan Acute respiratory failure with hypoxemia, Hypertensive urgency, COPD exacerbation Acute diastolic HF exacerbation Moderate pulmonary hypertension IV steroids Duonebs Echo normal EF with mod-sever hypertension Dispo: possible DC tomorrow if better Plan discussed with: Patient My Orders Orders - JOAQUIN SOLIS MD Procedure Category Date Status Time Basic Metabolic Panel LAB 02/09/25 Verified 05:00 Basic Metabolic Panel LAB 02/10/25 Verified 05:00 Basic Metabolic Panel LAB 02/11/25 Verified 05:00 Basic Metabolic Panel LAB 02/12/25 Verified 05:00 Basic Metabolic Panel LAB 02/13/25 Verified 05:00 Basic Metabolic Panel LAB 02/14/25 Verified 05:00 Complete Blood Count LAB 02/09/25 Verified 05:00 Complete Blood Count LAB 02/10/25 Verified 05:00 Complete Blood Count LAB 02/11/25 Verified 05:00 Complete Blood Count LAB 02/12/25 Verified 05:00 Complete Blood Count LAB 02/13/25 Verified 05:00 Complete Blood Count LAB 02/14/25 Verified 05:00 Complete Blood Count LAB 02/15/25 Verified 05:00 Date of Service: Feb 08, 2025 Billing Provider: JOAQUIN SOLIS MD Common Visit Codes: [id number] INP/OBS CARE(HIGH) JOAQUIN SOLIS MD Feb 08, 2025 09:45
[2025-02-08 15:26] LABS: Urine Budding Yeast OCCASIONAL /hpf (None Seen); Urine Protein, UAD Negative (Negative)
[2025-02-09] VITALS (15 sets, daily range): BP systolic 128–163; BP diastolic 39–106; PULSE 80–95; RESP 17–20; TEMP 97.5–98.4; O2SAT 96–100
[2025-02-09] MEDS: hydrALAZINE HCL 20 MG/ML VL IV PRN (04:59)
[2025-02-09 06:38] LABS: Hematocrit 41.2 % (36.0-46.0); Hemoglobin 13.8 g/dL (12.2-16.2); Mean Corpuscular Hemoglobin 30.3 pg (28.0-32.0); Mean Corpuscular Volume 90.3 fL (80.0-100.0); Nucleated Red Blood Cells % 0.2 %
[2025-02-09 06:47] LABS: Anion Gap 11 (5-15); Carbon Dioxide 23 mmol/L (20-31); Chloride 103 mmol/L (98-107); Potassium 4.1 mmol/L (3.5-5.1); Sodium 137 mmol/L (136-145)
[2025-02-09 06:48] LABS: Calcium 9.4 mg/dL (8.7-10.4)
[2025-02-09 06:53] LABS: BUN/Creatinine Ratio 19.0 (10.0-20.0); Blood Urea Nitrogen 15 mg/dL (9-23)
[2025-02-09 06:59] LABS: Glucose 116 mg/dL (74-106)
--- NOTE | 2025-02-09 16:32 | DVHPN2 ---
Subjective I am assuming the care of the patient from today onwards. Patient is here for acute hypoxic respiratory failure suspected secondary to COPD exacerbation and severe pulmonary hypertension. Reviewed: H&P Changes from previous H/P or p: No Changes Eyes: No Pain, No Vision change, No Conjunctivae inflammation, No Eyelid inflammation, No Other, No Redness ENT: No Ear pain, No Ear discharge, No Nose pain, No Nose discharge, No Nose congestion, No Mouth pain, No Mouth swelling, No Throat pain, No Throat swelling, No Other Cardiovascular: No Chest Pain, No Palpitations, No Orthopnea, No Paroxysmal Noc. Dyspnea, No Edema, No Lt Headedness, No Other Respiratory: No Cough, No Dry; Shortness of breath, SOB with excertion; No Wheezing, No Hemoptysis, No Pleuritic Pain, No Sputum, No Other Gastrointestinal: No Nausea, No Vomiting, No Abdominal Pain, No Diarrhea, No Constipation, No Melena, No Hematochezia, No Other Genitourinary: No Dysuria, No Frequency, No Incontinence, No Hematuria, No Retention, No Other Musculoskeletal: No other, No neck pain, No shoulder pain, No arm pain, No back pain, No hand pain, No leg pain, No foot pain Skin: No Rash, No Lesions, No Jaundice, No Bruising, No Other Objective Vitals Vital Signs Date Time Temp Pulse Resp B/P (MAP) Pulse Ox O2 Delivery O2 Flow Rate FiO2 02/09/25 13:41 144/90 02/09/25 13:20 92 20 100 02/09/25 12:56 98.2 98.2 02/09/25 10:10 Nasal Cannula* 3 32 Intake/Output Intake and Output 02/09/25 07:00 Intake Total 2026 ml Balance 2026 ml Intake Oral 2026 ml # Voids 7 Exam HEENT pupils are reactive Neck is supple CV is S1-S2 regular rate and rhythm Respiratory diminished breath sounds bases GI positive bowel sound Extremity no pedal edema 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 General Appearance: Alert, Oriented X3 HEENT: Atraumatic Lungs: Clear to auscultation Cardiovascular: Regular rate, Normal S1, Normal S2 Medications Current Medications Medications Dose Ordered Sig/Mere Route Start Time Stop Time Status Last Admin Dose Admin Hydralazine HCl 10 mg Q6HP PRN IV 02/05/25 12:45 02/09/25 04:59 10 MG Clonidine HCl 0.2 mg Q6HP PRN PO 02/05/25 12:45 02/09/25 12:41 0.2 MG Aspirin 81 mg DAILY PO 02/06/25 10:00 02/09/25 09:26 81 MG Hydrochlorothiazide 25 mg DAILY PO 02/06/25 10:00 02/09/25 09:26 25 MG Lisinopril 20 mg DAILY PO 02/06/25 10:00 02/09/25 09:24 20 MG Acetaminophen/ Hydrocodone Bitart 1 tab Q4HP PRN PO 02/05/25 13:30 02/09/25 09:25 1 TAB Ondansetron HCl 4 mg Q4HP PRN IV 02/05/25 13:30 Docusate Sodium 100 mg BIDPRN PRN PO 02/05/25 13:30 Enoxaparin Sodium 40 mg DAILY SC 02/06/25 10:00 02/09/25 11:12 40 MG Acetaminophen 650 mg Q6HP PRN PO 02/05/25 13:30 Nitroglycerin 0.4 mg Q5MINP PRN SL 02/05/25 13:30 Morphine Sulfate 2 mg Q30M PRN IV 02/05/25 13:30 Albuterol 2.5 mg Q6HWA [facility] 02/05/25 18:00 02/09/25 13:19 2.5 MG Ipratropium [place] 0.5 mg Q6HWA [facility] 02/05/25 18:00 02/09/25 13:16 0.5 MG Melatonin 10 mg HS PO 02/05/25 22:00 02/08/25 21:26 10 MG Methylprednisolone Sodium Succinate 40 mg BID IV 02/05/25 22:00 02/09/25 09:21 40 MG Metoprolol Tartrate 25 mg BID PO 02/09/25 22:00 Laboratory Results Laboratory Tests 02/09/25 06:00 Chemistry Test 02/09/25 06:00 Calcium Level 9.4 mg/dL (8.7-10.4) Urinalysis Test 02/08/25 14:49 Urine Color Light-yellow (Yellow) Urine Clarity Clear (Clear) Urine pH 5.0 (5.0-9.0) Urine Specific [place] 1.022 (1.001-1.035) Urine Protein Negative (Negative) Urine Ketones Negative (Negative) Urine Blood Trace /uL (Negative) H Urine Nitrite Negative (Negative) Urine Bilirubin Negative (Negative) Urine Urobilinogen Normal mg/dL (Negative) Urine Leukocyte Esterase 3+ /uL (Negative) Urine RBC 4 /hpf (0 - 4) Urine Microscopic WBC 3 /HPF (0-5) Urine Squamous Epithelial Cells Few /hpf (<5) Urine Bacteria Few /hpf (None Seen) H Urine Mucus Few (None Seen) Urine Yeast (Budding) Occasional /hpf (None Urine Glucose Normal mg/dL (Normal) Microbiology Microbiology Date/Time Source Procedure Growth Status 02/05/25 10:08 Voided Urine Urine Culture - Final Complete Assessment/Plan Assessment/Plan 54-year-old female with a known history of COPD, hypertension initially admitted to the hospital with the increasing shortness of breaths found to have 1. Acute hypoxic respiratory failure with the hypoxemia secondary to acute COPD exacerbation 2. Acute COPD exacerbation 3. Severe pulmonary hypertension 4. Hypertensive urgency 5. Acute diastolic congestive heart failure exacerbation -continue med nebs, Solu-Medrol, O2 supplementation- Follow up 2D echo cardiology consult Plan discussed with: Patient My Orders Orders - CINDY IGLESIAS MD Procedure Category Date Status Time Metoprolol Tartrate PHA 02/09/25 In Process Tablet (Lopressor Ta 22:00 * Cardiology Consult CONS 02/09/25 Transmitted 15:[address] 02/09/25 Taken 15:43 Ct Ab Pel Wo Con-No CT 02/09/25 Taken Oral Or Iv 15:44 Date of Service: Feb 09, 2025 Billing Provider: CINDY IGLESIAS MD Common Visit Codes: [id number] INP/OBS CARE(HIGH) CINDY IGLESIAS MD Feb 09, 2025 16:32
--- NOTE | 2025-02-09 17:03 | DVH ---
EXAM: CT CT AB PEL WO CON-NO ORAL OR IV INDICATION: POSSIBLE METS TECHNIQUE: Volumetric multidetector CT images of the abdomen and pelvis were obtained without contrast. All CT scans at this facility use dose modulation, iterative reconstruction, and/or weight based dosing when appropriate to reduce radiation dose to as low as reasonably achievable. COMPARISON: None FINDINGS: [LOWER CHEST]: Small right-sided pleural effusion. The cardiac size is normal without pericardial effusion. [LIVER]: Normal hepatic size without suspicious focal lesion. [GALLBLADDER AND BILIARY TREE]: No cholelithiasis. [SPLEEN]: Unremarkable. [PANCREAS]: Unremarkable. [ADRENAL GLANDS]: Unremarkable [KIDNEYS]: No hydronephrosis. No nephroureterolithiasis. No suspicious focal lesion. [BLADDER]: Unremarkable for the degree distention. [REPRODUCTIVE ORGANS]: Hysterectomy. [BOWEL/MESENTERY]: Stomach is normal. No CT evidence of bowel obstruction. normal appendix. Minimal sigmoid diverticulosis. Mild stool burden. [ASCITES]: Absent [LYMPHADENOPATHY]: No pathologically enlarged lymph nodes by CT size criteria [VASCULATURE]: No aneurysmal dilatation. [ABDOMINAL WALL]: Unremarkable. [MUSCULOSKELETAL]: No acute fracture or aggressive focal osseous lesion. Multifocal degenerative change of the visualized spine. IMPRESSION: 1. No CT evidence to suggest metastatic disease within the abdomen or pelvis. 2. Small right-sided pleural effusion.
--- NOTE | 2025-02-09 17:08 | DVH ---
Indication: POSSIBLE METS Technique: CT axial images of the neck are obtained without contrast. Coronal and sagittal reformats were obtained. Radiation Dose Information: CTDI volume is 16.77 mGy. Dose-length product is 396.56 mGy*cm Comparison: CT chest 02/05/2025 FINDINGS: Limited evaluation without contrast. Parotid, director work spaces are preserved. Parapharyngeal fat preserved. Submandibular glands unremarkable. No submental lymphadenopathy. Nasopharynx, oropharynx and hypopharynx patent. Epiglottis, aryepiglottic folds unremarkable. Moderate cervical degenerative disc disease and facet hypertrophic changes. Moderate bilateral TMJ arthrosis. Patient is edentulous. Small bilateral pleural effusions, [id number]. No posterior cervical triangle lymphadenopathy. No significant cervical jugulodigastric lymphadenopathy. Right paratracheal thyroid nodule versus lymph node measuring 2.6 cm and is exophytic. On the coronal images, this appears small likely emanate from the thyroid gland. 11 mm right paratracheal lymph node. No supraclavicular lymphadenopathy. The mastoids are well pneumatized. Imaged portions of the paranasal sinuses well pneumatized. IMPRESSION: Limited evaluation without contrast. Right paratracheal thyroid nodule versus lymph node measuring 2.6 cm. Recommend thyroid ultrasound to further characterize. Paratracheal lymphadenopathy. Please refer to previous CT chest which demonstrates mediastinal/hilar lymphadenopathy. Differential considerations include infectious, inflammatory, neoplastic etiologies. Small bilateral pleural effusions. Other findings as described
--- NOTE | 2025-02-09 17:38 | DVHINCON2 ---
Date of service: Feb 09, 2025 Referring Physician Opal Reason for Consultation High blood pressure History of Present Illness This is a 54-year-old female with a past medical history of hypertension who presented to the ED with complaints of shortness of breath. Patient states she has been experiencing shortness of breath for about 2 days. She states she normally can ambulate well, go the grocery store and do her grocery shopping without any problems. However, these last 2 days she states is has been difficult just to walk around her house. About 1 year ago she was seen by cardiology for chest pain. She had an echo and stress test completed that she states came back normal. Troponin is 46 x2. EKG: tachycardia at 104. Chest x-ray showed left mid lung linear opacity favored to reflect atelectasis. Patient was admitted to the hospital. I am asked to consult on this patient. Family History: Patient reports no known family medical history. Allergies: Coded Allergies: NO KNOWN ALLERGIES (Unverified , 07/23/16) Home Meds Reported Medications Aspirin (Aspir-81) 81 Mg Tab, 1 TAB PO DAILY, #30 TAB 5 Refills 02/05/25 Lisinopril (Lisinopril) 20 Mg Tab, 1 TAB PO DAILY, #30 TAB 5 Refills 02/05/25 Hctz (Hydrochlorothiazide) 25 Mg Tab, 25 MG PO DAILY, TAB 02/05/25 Discontinued Scripts Cyclobenzaprine Hcl (Cyclobenzaprine Hcl) 10 Mg Tab, 1 TAB PO Q8HPRN PRN, #15 TAB as needed for muscle spasm Prov:COMPA ZARATE FORMULA BOTTLER 07/12/23 Hydrocodone-Acetaminophen (Hydrocodone Bitartrate/AC 5-325 mg) 1 Tab Tab, 1 TAB PO Q6HPRN PRN, #10 TAB as needed for pain Prov:COMPA ZARATE Q FORMULA BOTTLER 07/12/23 Current Medications Current Medications Medications (Trade) Dose Ordered Sig/Mere Route PRN Reason Start Time Stop Time Status Last Admin Metoprolol Tartrate (Lopressor Tablet) 25 mg BID PO 02/09/25 22:00 Review of Systems Constitutional: reports: fatigue; denies: chills, diaphoresis, fever, malaise, sweats, weakness EENTM: denies: blurred vision, ear bleeding, ear ringing, hearing loss, nasal discharge, nose congestion, throat pain Respiratory: reports: cough, SOB at rest, SOB with excertion, wheezing; denies: hemoptysis, orthopnea Cardiovascular: reports: chest pain, Dyspnea on exertion; denies: dizzy spells, diaphoresis, edema, left arm pain, lightheadedness, syncope Gastrointestinal: denies: abdomen distended, abdominal pain, constipated, diarrhea, dysphagia, hematemesis, melena, nausea, poor appetite, poor fluid intake, vomiting Genitourinary: denies: burning, dysuria, flank pain, frequency, hematuria, incontinence, pain, urgency Neurological: reports: speech problems; denies: dizziness, fainting, headache, numbness, paresthesia, pre-existing deficit, seizure, weakness Musculoskeletal: denies: back pain, joint pain, joint swelling, muscle pain, muscle stiffness, neck pain Integumetry: denies: bruises, dryness, laceration, lesions, lumps, rash, wounds Vital Signs Vital Signs Date Time Temp Pulse Resp B/P (MAP) Pulse Ox O2 Delivery O2 Flow Rate FiO2 02/09/25 13:41 144/90 02/09/25 13:20 92 20 100 02/09/25 12:56 98.2 98.2 02/09/25 10:10 Nasal Cannula* 3 32 Physical Exam GENERAL: Alert and oriented x 3. No acute distress. Obese. EYES: PERRL, EOMI. Anicteric. HENT: Moist mucous membranes. LUNGS: Clear to auscultation bilaterally. CARDIOVASCULAR: Regular rate and rhythm. ABDOMEN: Soft, nontender and nondistended. EXTREMITIES: No edema. NEUROLOGIC: No focal neurological deficits. SKIN: Warm, dry. Labs/Diagnostic Data Labs Test 02/09/25 06:00 02/08/25 14:49 02/06/25 05:56 02/05/25 14:22 Range/Units White Blood Count 12.5 H 4.4-10.8 10^3/uL Red Blood Count 4.57 4.0-5.20 10^6/uL Hemoglobin 13.8 12.2-16.2 g/dL Hematocrit 41.2 36.0-46.0 % Mean Corpuscular Volume 90.3 80.0-100.0 fL Mean Corpuscular Hemoglobin 30.3 28.0-32.0 pg Mean Corpuscular Hemoglobin Concent 33.6 32.0-36.0 g/dL Red Cell Distribution Width 14.4 H 11.8-14.3 % Platelet Count 244 140-450 10^3/uL Mean Platelet Volume 9.1 6.9-10.8 fL Neutrophils (%) (Auto) 79.7 37.0-80.0 % Lymphocytes (%) (Auto) 16.5 10.0-50.0 % Monocytes (%) (Auto) 3.6 0.0-12.0 % Eosinophils (%) (Auto) 0.0 0.0-7.0 % Basophils (%) (Auto) 0.2 0.0-2.0 % Neutrophils # (Auto) 10.0 H 1.6-8.6 10 ^3/uL Lymphocytes # (Auto) 2.1 0.4-5.4 10 ^3/uL Monocytes # (Auto) 0.4 0-1.3 10 ^3/uL Eosinophils # (Auto) 0 0-0.8 10 ^3/uL Basophils # (Auto) 0 0-0.2 10 ^3/uL Nucleated Red Blood Cells 0.2 % Sodium Level 137 136-145 mmol/L Potassium Level 4.1 3.5-5.1 mmol/L Chloride Level 103 98-107 mmol/L Carbon Dioxide Level 23 20-31 mmol/L Anion Gap 11 5-15 Blood Urea Nitrogen 15 9-23 mg/dL Creatinine 0.79 0.550-1.02 mg/dL Glomerular Filtration Rate Calc 88 >90 mL/min BUN/Creatinine Ratio 19.0 10.0-20.0 Serum Glucose 116 H 74-106 mg/dL Calcium Level 9.4 8.7-10.4 mg/dL Urine Color Light-yellow Yellow Urine Clarity Clear Clear Urine pH 5.0 5.0-9.0 Urine Specific [place] 1.022 1.001-1.035 Urine Protein Negative Negative Urine Ketones Negative Negative Urine Blood Trace H Negative /uL Urine Nitrite Negative Negative Urine Bilirubin Negative Negative Urine Urobilinogen Normal Negative mg/dL Urine Leukocyte Esterase 3+ Negative /uL Urine RBC 4 0 - 4 /hpf Urine Microscopic WBC 3 0-5 /HPF Urine Squamous Epithelial Cells Few <5 /hpf Urine Bacteria Few H None Seen /hpf Urine Mucus Few None Seen Urine Yeast (Budding) Occasional None Seen /hpf Urine Glucose Normal Normal mg/dL Total Bilirubin 0.5 0.2-1.0 mg/dL Aspartate Amino Transferase (AST) 21 13-40 U/L Alanine Aminotransferase (ALT) 21 7-40 U/L Alkaline Phosphatase 72 46-116 U/L Total Protein 6.7 5.7-8.2 g/dL Albumin 4.0 3.2-4.8 g/dL D-Dimer, Quantitative 2.08 H 0.0-0.49 mg/L FEU Test 02/05/25 10:08 02/05/25 09:08 Range/Units Troponin I High Sensitivity 46 *H </=34 ng/L B-Type Natriuretic Peptide 320.26 0-100 pg/mL Microbiology Date/Time Source Procedure Growth Status 02/05/25 10:08 Voided Urine Urine Culture - Final Complete Assessment Acute respiratory failure with hypoxemia. Hypertensive urgency. COPD exacerbation. Acute diastolic HF exacerbation. Moderate pulmonary hypertension. Plan/Recommendation I agree with your ongoing assessment and care of plan. Echocardiogram. Morphine and [place] for pain management. Aspirin,Metoprolol. Clonidine, Lisinopril. DVT prophylactics. IV Hydralazine for SBP > 150. Nitro SL. Additional plan as per the hospital course. A total of 45 minutes was spent reviewing the patient record, examining the patient, making a diagnostic and therapeutic plan, discussing this plan with medical personnel, following up on diagnostic studies and following the patient for clinical stability excluding any and all procedures. At least 50% of this time was spent in direct, [id number] contact. Plan discussed with: Patient ELINOR PADRON MD Feb 09, 2025 16:46
[2025-02-09] MEDS: METOPROLOL TARTRATE 25 MG TAB PO SCH (20:47)
[2025-02-10] VITALS (15 sets, daily range): BP systolic 112–150; BP diastolic 75–99; PULSE 60–96; RESP 16–20; TEMP 97.4–98.4; O2SAT 94–100
[2025-02-10 07:47] LABS: Hematocrit 41.6 % (36.0-46.0); Hemoglobin 13.7 g/dL (12.2-16.2); Mean Corpuscular Hemoglobin 30.2 pg (28.0-32.0); Mean Corpuscular Volume 91.6 fL (80.0-100.0); Nucleated Red Blood Cells % 0.1 %
[2025-02-10 08:47] LABS: Anion Gap 11 (5-15); Calcium 8.9 mg/dL (8.7-10.4); Carbon Dioxide 25 mmol/L (20-31); Chloride 103 mmol/L (98-107); Potassium 4.2 mmol/L (3.5-5.1); Sodium 139 mmol/L (136-145)
[2025-02-10 08:53] LABS: BUN/Creatinine Ratio 23.4 (10.0-20.0); Blood Urea Nitrogen 18 mg/dL (9-23)
[2025-02-10 08:54] LABS: Glucose 108 mg/dL (74-106)
--- NOTE | 2025-02-10 18:15 | DVHPN2 ---
Subjective Overnight events noted. Patient denies any complaints. Reviewed: H&P Changes from previous H/P or p: No Changes Eyes: No Pain, No Vision change, No Conjunctivae inflammation, No Eyelid inflammation, No Other, No Redness ENT: No Ear pain, No Ear discharge, No Nose pain, No Nose discharge, No Nose congestion, No Mouth pain, No Mouth swelling, No Throat pain, No Throat swelling, No Other Cardiovascular: No Chest Pain, No Palpitations, No Orthopnea, No Paroxysmal Noc. Dyspnea, No Edema, No Lt Headedness, No Other Respiratory: No Cough, No Dry; Shortness of breath, SOB with excertion; No Wheezing, No Hemoptysis, No Pleuritic Pain, No Sputum, No Other Gastrointestinal: No Nausea, No Vomiting, No Abdominal Pain, No Diarrhea, No Constipation, No Melena, No Hematochezia, No Other Genitourinary: No Dysuria, No Frequency, No Incontinence, No Hematuria, No Retention, No Other Musculoskeletal: No other, No neck pain, No shoulder pain, No arm pain, No back pain, No hand pain, No leg pain, No foot pain Skin: No Rash, No Lesions, No Jaundice, No Bruising, No Other Objective Vitals Vital Signs Date Time Temp Pulse Resp B/P (MAP) Pulse Ox O2 Delivery O2 Flow Rate FiO2 02/10/25 16:35 98.4 82 18 144/93 (110) 96 98.4 02/10/25 11:39 Room Air 0.0 02/10/25 11:39 21 Intake/Output Intake and Output 02/10/25 07:00 Intake Total 3380 ml Balance 3380 ml Intake Oral 3380 ml # Voids 8 # Bowel Movements 1 Exam HEENT pupils are reactive Neck is supple CV is S1-S2 regular rate and rhythm Respiratory are clear GI positive bowel sound Extremity no edema 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 General Appearance: Alert, Oriented X3 HEENT: Atraumatic Lungs: Clear to auscultation Cardiovascular: Regular rate, Normal S1, Normal S2 Medications Current Medications Medications Dose Ordered Sig/Mere Route Start Time Stop Time Status Last Admin Dose Admin Hydralazine HCl 10 mg Q6HP PRN IV 02/05/25 12:45 02/09/25 04:59 10 MG Clonidine HCl 0.2 mg Q6HP PRN PO 02/05/25 12:45 02/09/25 12:41 0.2 MG Aspirin 81 mg DAILY PO 02/06/25 10:00 02/10/25 10:49 81 MG Hydrochlorothiazide 25 mg DAILY PO 02/06/25 10:00 02/10/25 10:47 25 MG Lisinopril 20 mg DAILY PO 02/06/25 10:00 02/10/25 10:48 20 MG Acetaminophen/ Hydrocodone Bitart 1 tab Q4HP PRN PO 02/05/25 13:30 02/10/25 10:51 1 TAB Ondansetron HCl 4 mg Q4HP PRN IV 02/05/25 13:30 Docusate Sodium 100 mg BIDPRN PRN PO 02/05/25 13:30 Enoxaparin Sodium 40 mg DAILY SC 02/06/25 10:00 02/10/25 10:46 40 MG Acetaminophen 650 mg Q6HP PRN PO 02/05/25 13:30 Nitroglycerin 0.4 mg Q5MINP PRN SL 02/05/25 13:30 Morphine Sulfate 2 mg Q30M PRN IV 02/05/25 13:30 Albuterol 2.5 mg Q6HWA [facility] 02/05/25 18:00 02/10/25 11:39 2.5 MG Ipratropium [place] 0.5 mg Q6HWA [facility] 02/05/25 18:00 02/10/25 11:39 0.5 MG Melatonin 10 mg HS PO 02/05/25 22:00 02/09/25 20:47 10 MG Methylprednisolone Sodium Succinate 40 mg BID IV 02/05/25 22:00 02/10/25 10:43 40 MG Metoprolol Tartrate 25 mg BID PO 02/09/25 22:00 02/10/25 10:48 25 MG Laboratory Results Laboratory Tests 02/10/25 05:42 Chemistry Test 02/10/25 05:42 Calcium Level 8.9 mg/dL (8.7-10.4) Urinalysis Test 02/08/25 14:49 Urine Color Light-yellow (Yellow) Urine Clarity Clear (Clear) Urine pH 5.0 (5.0-9.0) Urine Specific [place] 1.022 (1.001-1.035) Urine Protein Negative (Negative) Urine Ketones Negative (Negative) Urine Blood Trace /uL (Negative) H Urine Nitrite Negative (Negative) Urine Bilirubin Negative (Negative) Urine Urobilinogen Normal mg/dL (Negative) Urine Leukocyte Esterase 3+ /uL (Negative) Urine RBC 4 /hpf (0 - 4) Urine Microscopic WBC 3 /HPF (0-5) Urine Squamous Epithelial Cells Few /hpf (<5) Urine Bacteria Few /hpf (None Seen) H Urine Mucus Few (None Seen) Urine Yeast (Budding) Occasional /hpf (None Urine Glucose Normal mg/dL (Normal) Microbiology Microbiology Date/Time Source Procedure Growth Status 02/05/25 10:08 Voided Urine Urine Culture - Final Complete Assessment/Plan Assessment/Plan 54-year-old female with a known history of COPD, hypertension initially admitted to the hospital with the increasing shortness of breaths found to have 1. Acute hypoxic respiratory failure with the hypoxemia secondary to acute COPD exacerbation 2. Acute COPD exacerbation 3. Severe pulmonary hypertension 4. Hypertensive urgency 5. Acute diastolic congestive heart failure exacerbation 6. Mediastinal and bilateral hilar lymphadenopathy likely reactive, outpatient follow up with the PCP with a CT chest to make sure resolution otherwise needs further workup. -continue med nebs, Solu-Medrol, O2 supplementation- Follow up 2D echo cardiology consult appreciated. Plan discussed with: Patient Date of Service: Feb 10, 2025 Billing Provider: CINDY IGLESIAS MD Common Visit Codes: [id number] INP/OBS CARE(HIGH) CINDY IGLESIAS MD Feb 10, 2025 18:15
--- NOTE | 2025-02-10 23:34 | DVHPN2 ---
Progress Note - Dictate Date Seen: Feb 10, 2025 Medical Necessity Reason Pt with a Central, PICC or Fol: No Subjective Patient was seen and evaluated in follow up. Patient is complaining of SOB. The patient is on 2 LPM NC. WBC 13. Telemetry reviewed. vital signs Vital Sign Date Time Temp Pulse Resp B/P (MAP) Pulse Ox O2 Delivery O2 Flow Rate FiO2 02/10/25 21:15 96 132/77 02/10/25 21:00 97.5 18 97 97.5 02/10/25 19:20 Nasal Cannula 2.0 02/10/25 19:20 28 Total Intake and Output 02/09/25 02/09/25 02/10/25 15:00 23:00 07:00 Intake Total 1300 ml 2080 ml Balance 1300 ml 2080 ml medications Current Medications Medications Dose Ordered Sig/Mere Route Start Time Stop Time Status Last Admin Dose Admin Hydralazine HCl 10 mg Q6HP PRN IV 02/05/25 12:45 02/09/25 04:59 10 MG Clonidine HCl 0.2 mg Q6HP PRN PO 02/05/25 12:45 02/09/25 12:41 0.2 MG Aspirin 81 mg DAILY PO 02/06/25 10:00 02/10/25 10:49 81 MG Hydrochlorothiazide 25 mg DAILY PO 02/06/25 10:00 02/10/25 10:47 25 MG Lisinopril 20 mg DAILY PO 02/06/25 10:00 02/10/25 10:48 20 MG Acetaminophen/ Hydrocodone Bitart 1 tab Q4HP PRN PO 02/05/25 13:30 02/10/25 21:24 1 TAB Ondansetron HCl 4 mg Q4HP PRN IV 02/05/25 13:30 Docusate Sodium 100 mg BIDPRN PRN PO 02/05/25 13:30 Enoxaparin Sodium 40 mg DAILY SC 02/06/25 10:00 02/10/25 10:46 40 MG Acetaminophen 650 mg Q6HP PRN PO 02/05/25 13:30 Nitroglycerin 0.4 mg Q5MINP PRN SL 02/05/25 13:30 Morphine Sulfate 2 mg Q30M PRN IV 02/05/25 13:30 Albuterol 2.5 mg Q6HWA NEB 02/05/25 18:00 02/10/25 19:20 2.5 MG Ipratropium [place] 0.5 mg Q6HWA NEB 02/05/25 18:00 02/10/25 19:20 0.5 MG Melatonin 10 mg HS PO 02/05/25 22:00 02/10/25 21:15 10 MG Methylprednisolone Sodium Succinate 40 mg BID IV 02/05/25 22:00 02/10/25 21:15 40 MG Metoprolol Tartrate 25 mg BID PO 02/09/25 22:00 02/10/25 21:15 25 MG objective GENERAL: Alert and oriented x 3. No acute distress. Obese. EYES: PERRL, EOMI. Anicteric. HENT: Moist mucous membranes. LUNGS: Clear to auscultation bilaterally. CARDIOVASCULAR: Regular rate and rhythm. ABDOMEN: Soft, nontender and nondistended. EXTREMITIES: No edema. NEUROLOGIC: No focal neurological deficits. SKIN: Warm, dry. laboratory and microbiology Laboratory Tests 02/10/25 05:42 Test 02/10/25 05:42 Range/Units Serum Glucose 108 H 74-106 mg/dL Problem List Acute respiratory failure with hypoxemia. Hypertensive urgency. COPD exacerbation. Acute diastolic HF exacerbation. Moderate pulmonary hypertension. Assessment/Plan Continued all current supportive medical care. Echocardiogram. Morphine and [place] for pain management. Aspirin,Metoprolol. Clonidine, Lisinopril. DVT prophylactics. IV Hydralazine for SBP > 150. Nitro SL. Additional plan as per the hospital course. Plan discussed with: Patient ELINOR PADRON MD Feb 10, 2025 23:34
[2025-02-11] VITALS (19 sets, daily range): BP systolic 111–160; BP diastolic 51–102; PULSE 61–98; RESP 16–20; TEMP 97.6–97.8; O2SAT 94–100
[2025-02-11 06:52] LABS: Anion Gap 5 (5-15); Carbon Dioxide 29 mmol/L (20-31); Chloride 104 mmol/L (98-107); Potassium 4.8 mmol/L (3.5-5.1); Sodium 138 mmol/L (136-145)
[2025-02-11 06:54] LABS: Calcium 9.3 mg/dL (8.7-10.4)
[2025-02-11 06:58] LABS: BUN/Creatinine Ratio 22.6 (10.0-20.0); Blood Urea Nitrogen 21 mg/dL (9-23); Glucose 101 mg/dL (74-106)
[2025-02-11 07:11] LABS: Hematocrit 41.8 % (36.0-46.0); Hemoglobin 14.0 g/dL (12.2-16.2); Mean Corpuscular Hemoglobin 30.5 pg (28.0-32.0); Mean Corpuscular Volume 91.4 fL (80.0-100.0); Nucleated Red Blood Cells % 0.4 %
--- NOTE | 2025-02-11 11:29 | DVHPN2 ---
Progress Note - Dictate Date Seen: Feb 11, 2025 Medical Necessity Reason Pt with a Central, PICC or Fol: No Subjective Patient was seen and evaluated in follow up. Patient reports improvement in SOB. Patient is now on room air. WBC increased to 14.7. Telemetry reviewed. vital signs Vital Sign Date Time Temp Pulse Resp B/P (MAP) Pulse Ox O2 Delivery O2 Flow Rate FiO2 02/11/25 10:18 65 150/91 02/11/25 08:49 97.8 16 99 97.8 02/10/25 20:00 Room Air* 0 21 Total Intake and Output 02/10/25 02/10/25 02/11/25 15:00 23:00 07:00 Intake Total 1500 ml 1340 ml Balance 1500 ml 1340 ml medications Current Medications Medications Dose Ordered Sig/Mere Route Start Time Stop Time Status Last Admin Dose Admin Hydralazine HCl 10 mg Q6HP PRN IV 02/05/25 12:45 02/09/25 04:59 10 MG Clonidine HCl 0.2 mg Q6HP PRN PO 02/05/25 12:45 02/09/25 12:41 0.2 MG Aspirin 81 mg DAILY PO 02/06/25 10:00 02/11/25 10:18 81 MG Hydrochlorothiazide 25 mg DAILY PO 02/06/25 10:00 02/11/25 10:16 25 MG Lisinopril 20 mg DAILY PO 02/06/25 10:00 02/11/25 10:17 20 MG Acetaminophen/ Hydrocodone Bitart 1 tab Q4HP PRN PO 02/05/25 13:30 02/10/25 21:24 1 TAB Ondansetron HCl 4 mg Q4HP PRN IV 02/05/25 13:30 Docusate Sodium 100 mg BIDPRN PRN PO 02/05/25 13:30 Enoxaparin Sodium 40 mg DAILY SC 02/06/25 10:00 02/11/25 10:18 40 MG Acetaminophen 650 mg Q6HP PRN PO 02/05/25 13:30 Nitroglycerin 0.4 mg Q5MINP PRN SL 02/05/25 13:30 Morphine Sulfate 2 mg Q30M PRN IV 02/05/25 13:30 Albuterol 2.5 mg Q6HWA NEB 02/05/25 18:00 02/11/25 07:26 2.5 MG Ipratropium [place] 0.5 mg Q6HWA NEB 02/05/25 18:00 02/11/25 07:26 0.5 MG Melatonin 10 mg HS PO 02/05/25 22:00 02/10/25 21:15 10 MG Methylprednisolone Sodium Succinate 40 mg BID IV 02/05/25 22:00 02/11/25 10:18 40 MG Metoprolol Tartrate 25 mg BID PO 02/09/25 22:00 02/11/25 10:18 25 MG objective GENERAL: Alert and oriented x 3. No acute distress. Obese. EYES: PERRL, EOMI. Anicteric. HENT: Moist mucous membranes. LUNGS: Clear to auscultation bilaterally. CARDIOVASCULAR: Regular rate and rhythm. ABDOMEN: Soft, nontender and nondistended. EXTREMITIES: No edema. NEUROLOGIC: No focal neurological deficits. SKIN: Warm, dry. laboratory and microbiology Laboratory Tests 02/11/25 05:14 Test 02/11/25 05:14 Range/Units Serum Glucose 101 74-106 mg/dL Problem List Acute respiratory failure with hypoxemia. Hypertensive urgency. COPD exacerbation. Acute diastolic HF exacerbation. Moderate pulmonary hypertension. Assessment/Plan Continued all current supportive medical care. Echocardiogram. Morphine and [place] for pain management. Aspirin,Metoprolol. Clonidine, Lisinopril. DVT prophylactics. IV Hydralazine for SBP > 150. Nitro SL. Additional plan as per the hospital course. Plan discussed with: Patient ELINOR PADRON MD Feb 11, 2025 11:29
[2025-02-11] MEDS ORDERED: METH4PAK PO (15:52)
[2025-02-11] MEDS ORDERED: ALBUAER3 IN (15:52)
[2025-02-11] MEDS ORDERED: MET25T PO (15:52)
--- NOTE | 2025-02-11 15:57 | DVHDS2 ---
Discharge Summary Date of Admission Feb 05, 2025 at 13:17 Date of Discharge: Feb 11, 2025 Labs/Diagnostic Data: Laboratory Results Test 02/11/25 05:14 02/08/25 14:49 02/06/25 05:56 02/05/25 14:22 White Blood Count 14.7 10^3/uL (4.4-10.8) Red Blood Count 4.58 10^6/uL (4.0-5.20) Hemoglobin 14.0 g/dL (12.2-16.2) Hematocrit 41.8 % (36.0-46.0) Mean Corpuscular Volume 91.4 fL (80.0-100.0) Mean Corpuscular Hemoglobin 30.5 pg (28.0-32.0) Mean Corpuscular Hemoglobin Concent 33.4 g/dL (32.0-36.0) Red Cell Distribution Width 14.6 % (11.8-14.3) Platelet Count 266 10^3/uL (140-450) Mean Platelet Volume 9.3 fL (6.9-10.8) Neutrophils (%) (Auto) 81.9 % (37.0-80.0) Lymphocytes (%) (Auto) 13.0 % (10.0-50.0) Monocytes (%) (Auto) 5.0 % (0.0-12.0) Eosinophils (%) (Auto) 0.0 % (0.0-7.0) Basophils (%) (Auto) 0.1 % (0.0-2.0) Neutrophils # (Auto) 12.0 10 ^3/uL (1.6-8.6) Lymphocytes # (Auto) 1.9 10 ^3/uL (0.4-5.4) Monocytes # (Auto) 0.7 10 ^3/uL (0-1.3) Eosinophils # (Auto) 0 10 ^3/uL (0-0.8) Basophils # (Auto) 0 10 ^3/uL (0-0.2) Nucleated Red Blood Cells 0.4 % Sodium Level 138 mmol/L (136-145) Potassium Level 4.8 mmol/L (3.5-5.1) Chloride Level 104 mmol/L (98-107) Carbon Dioxide Level 29 mmol/L (20-31) Anion Gap 5 (5-15) Blood Urea Nitrogen 21 mg/dL (9-23) Creatinine 0.93 mg/dL (0.550-1.02) Glomerular Filtration Rate Calc 72 mL/min (>90) BUN/Creatinine Ratio 22.6 (10.0-20.0) Serum Glucose 101 mg/dL (74-106) Calcium Level 9.3 mg/dL (8.7-10.4) Urine Color Light-yellow (Yellow) Urine Clarity Clear (Clear) Urine pH 5.0 (5.0-9.0) Urine Specific [place] 1.022 (1.001-1.035) Urine Protein Negative (Negative) Urine Ketones Negative (Negative) Urine Blood Trace /uL (Negative) Urine Nitrite Negative (Negative) Urine Bilirubin Negative (Negative) Urine Urobilinogen Normal mg/dL (Negative) Urine Leukocyte Esterase 3+ /uL (Negative) Urine RBC 4 /hpf (0 - 4) Urine Microscopic WBC 3 /HPF (0-5) Urine Squamous Epithelial Cells Few /hpf (<5) Urine Bacteria Few /hpf (None Seen) Urine Mucus Few (None Seen) Urine Yeast (Budding) Occasional /hpf (None Urine Glucose Normal mg/dL (Normal) Total Bilirubin 0.5 mg/dL (0.2-1.0) Aspartate Amino Transferase (AST) 21 U/L (13-40) Alanine Aminotransferase (ALT) 21 U/L (7-40) Alkaline Phosphatase 72 U/L (46-116) Total Protein 6.7 g/dL (5.7-8.2) Albumin 4.0 g/dL (3.2-4.8) D-Dimer, Quantitative 2.08 mg/L FEU (0.0-0.49) Test 02/05/25 10:08 02/05/25 09:08 Troponin I High Sensitivity 46 ng/L (</=34) B-Type Natriuretic Peptide 320.26 pg/mL (0-100) Other Laboratory Tests 02/11/25 05:14 Brief Hx & Hospital Course: 54-year-old female with a known history of COPD, hypertension initially admitted to the hospital with the increasing shortness of breaths found to have acute hypoxic respiratory failure secondary to acute COPD exacerbation as well as severe pulmonary hypertension. Patient also maybe have a component of acute diastolic congestive heart failure exacerbation. Patient was given IV Solu- Medrol, 2D echo was done which shows EF of 60% but probably diastolic dysfunction as well as severe pulmonary hypertension. Cardiology recommended beta samraia and resume lisinopril. Patient is currently stable to be discharged. Patient is currently saturating more than 92% on room air. Patient was explained that you do have lymph nodes in the lungs as well as mediastinum close to the heart which could be reactive but need outpatient follow up with the PCP with a repeat CT chest to make sure resolution of lymph nodes otherwise needs further workup to rule out any cancer or malignancy. Condition at Discharge: Stable Final Diagnosis/Problems List 54-year-old female with a known history of COPD, hypertension initially admitted to the hospital with the increasing shortness of breaths found to have 1. Acute hypoxic respiratory failure with the hypoxemia secondary to acute COPD exacerbation 2. Acute COPD exacerbation 3. Severe pulmonary hypertension 4. Hypertensive urgency 5. Acute diastolic congestive heart failure exacerbation 6. Mediastinal and bilateral hilar adenopathy likely reactive, outpatient follow up with the PCP with a repeat CT chest in two weeks if still persistent then needs further workup to make sure there is no underlying cancer out malignancy. -continue med nebs, Solu-Medrol, O2 supplementation- Follow up 2D echo cardiology consult Discharge Disposition: Home SNF Discharge Will this Physician continue t: No Discharge Instruct/Medications Diet: Cardiac 2g Na,low cholest Activity: No Restrictions, As Tolerated Follow Up/Referral: Please follow up with the PCP in two weeks with a repeat CT chest as an outpatient to make sure resolution of mediastinal and hilar lymphadenopathy otherwise needs further workup to rule out malignancy. Please follow up with Dr. Jean Claude Cain , beveling and edging machine operator in 1-2 weeks Medications: Resume home medication, new prescription as prescribed. New Medications: Albuterol Sulfate (Ventolin Mdi) 90 Mcg Ih 90 MCG IN Q4HP PRN, #1 INH Methylprednisolone (Medrol Dosepak) 4 Mg Noe 4 MG PO UD, #21 TAB UAD Metoprolol Tartrate (Lopressor) 25 Mg Tb 25 MG PO BID for 30 Days, #60 TAB Continued Medications: Aspirin (Aspir-81) 81 Mg Tab 1 TAB PO DAILY, #30 TAB 5 Refills Hctz (Hydrochlorothiazide) 25 Mg Tab 25 MG PO DAILY, TAB Lisinopril (Lisinopril) 20 Mg Tab 1 TAB PO DAILY, #30 TAB 5 Refills Scheduled Aspirin (Aspir-81), 1 TAB PO DAILY, (Reported) Hctz (Hydrochlorothiazide), 25 MG PO DAILY, (Reported) Lisinopril (Lisinopril), 1 TAB PO DAILY, (Reported) Methylprednisolone (Medrol Dosepak), 4 MG PO UD Metoprolol Tartrate (Lopressor), 25 MG PO BID Scheduled PRN Albuterol Sulfate (Ventolin Mdi), 90 MCG IN Q4HP PRN Discontinued Medications Cyclobenzaprine Hcl (Cyclobenzaprine Hcl), 1 TAB PO Q8HPRN PRN Hydrocodone-Acetaminophen (Hydrocodone Bitartrate/AC 5-325 mg), 1 TAB PO Q6HPRN PRN Discharge Statement: "Patient was advised to return to the ER or call 911 if any headaches, dizziness, shortness of breath, chest pain, abdominal pain, bleeding, fevers, or worsening of medical condition. Patient was counseled about treatment plan, medications, possible side effects, patientverbalized understanding. All questions were answered to the best of my ability. This discharge took greater then 30 minutes in planning, reviewing documentation, counseling the patient, and discussing with other team members." ASSESSMENT ASSESSMENT Assessment 54-year-old female with a known history of COPD, hypertension initially admitted to the hospital with the increasing shortness of breaths found to have 1. Acute hypoxic respiratory failure with the hypoxemia secondary to acute COPD exacerbation 2. Acute COPD exacerbation 3. Severe pulmonary hypertension 4. Hypertensive urgency 5. Acute diastolic congestive heart failure exacerbation 6. Mediastinal and bilateral hilar adenopathy likely reactive, outpatient follow up with the PCP with a repeat CT chest in two weeks if still persistent then needs further workup to make sure there is no underlying cancer out malignancy. -continue med nebs, Solu-Medrol, O2 supplementation- Follow up 2D echo cardiology consult Date of Service: Feb 11, 2025 Billing Provider: CINDY IGLESIAS MD Common Visit Codes: 07329-CIK/OBS DISCH DAY >30min CINDY IGLESIAS MD Feb 11, 2025 15:57
[2025-02-12] VITALS (12 sets, daily range): BP systolic 136–162; BP diastolic 82–103; PULSE 59–78; RESP 14–17; TEMP 97.7–98.2; O2SAT 96–100
[2025-02-12 07:59] LABS: Hematocrit 43.2 % (36.0-46.0); Hemoglobin 14.2 g/dL (12.2-16.2); Mean Corpuscular Hemoglobin 29.7 pg (28.0-32.0); Mean Corpuscular Volume 90.3 fL (80.0-100.0); Nucleated Red Blood Cells % 0.0 %
[2025-02-12 08:13] LABS: Potassium 4.3 mmol/L (3.5-5.1); Sodium 137 mmol/L (136-145)
[2025-02-12 08:14] LABS: Calcium 9.1 mg/dL (8.7-10.4); Carbon Dioxide 26 mmol/L (20-31)
[2025-02-12 08:19] LABS: BUN/Creatinine Ratio 24.1 (10.0-20.0); Blood Urea Nitrogen 21 mg/dL (9-23); Glucose 98 mg/dL (74-106)
[2025-02-12 09:05] LABS: Anion Gap 7 (5-15); Chloride 104 mmol/L (98-107)
--- NOTE | 2025-02-12 12:46 | DVHDS2 ---
Discharge Summary Date of Admission Feb 05, 2025 at 13:17 Date of Discharge: Feb 12, 2025 Labs/Diagnostic Data: Laboratory Results Test 02/12/25 06:08 02/08/25 14:49 02/06/25 05:56 02/05/25 14:22 White Blood Count 17.5 10^3/uL (4.4-10.8) Red Blood Count 4.79 10^6/uL (4.0-5.20) Hemoglobin 14.2 g/dL (12.2-16.2) Hematocrit 43.2 % (36.0-46.0) Mean Corpuscular Volume 90.3 fL (80.0-100.0) Mean Corpuscular Hemoglobin 29.7 pg (28.0-32.0) Mean Corpuscular Hemoglobin Concent 33.0 g/dL (32.0-36.0) Red Cell Distribution Width 14.9 % (11.8-14.3) Platelet Count 291 10^3/uL (140-450) Mean Platelet Volume 9.3 fL (6.9-10.8) Neutrophils (%) (Auto) 82.7 % (37.0-80.0) Lymphocytes (%) (Auto) 12.1 % (10.0-50.0) Monocytes (%) (Auto) 5.1 % (0.0-12.0) Eosinophils (%) (Auto) 0.0 % (0.0-7.0) Basophils (%) (Auto) 0.1 % (0.0-2.0) Neutrophils # (Auto) 14.5 10 ^3/uL (1.6-8.6) Lymphocytes # (Auto) 2.1 10 ^3/uL (0.4-5.4) Monocytes # (Auto) 0.9 10 ^3/uL (0-1.3) Eosinophils # (Auto) 0 10 ^3/uL (0-0.8) Basophils # (Auto) 0 10 ^3/uL (0-0.2) Nucleated Red Blood Cells 0.0 % Sodium Level 137 mmol/L (136-145) Potassium Level 4.3 mmol/L (3.5-5.1) Chloride Level 104 mmol/L (98-107) Carbon Dioxide Level 26 mmol/L (20-31) Anion Gap 7 (5-15) Blood Urea Nitrogen 21 mg/dL (9-23) Creatinine 0.87 mg/dL (0.550-1.02) Glomerular Filtration Rate Calc 78 mL/min (>90) BUN/Creatinine Ratio 24.1 (10.0-20.0) Serum Glucose 98 mg/dL (74-106) Calcium Level 9.1 mg/dL (8.7-10.4) Urine Color Light-yellow (Yellow) Urine Clarity Clear (Clear) Urine pH 5.0 (5.0-9.0) Urine Specific [place] 1.022 (1.001-1.035) Urine Protein Negative (Negative) Urine Ketones Negative (Negative) Urine Blood Trace /uL (Negative) Urine Nitrite Negative (Negative) Urine Bilirubin Negative (Negative) Urine Urobilinogen Normal mg/dL (Negative) Urine Leukocyte Esterase 3+ /uL (Negative) Urine RBC 4 /hpf (0 - 4) Urine Microscopic WBC 3 /HPF (0-5) Urine Squamous Epithelial Cells Few /hpf (<5) Urine Bacteria Few /hpf (None Seen) Urine Mucus Few (None Seen) Urine Yeast (Budding) Occasional /hpf (None Urine Glucose Normal mg/dL (Normal) Total Bilirubin 0.5 mg/dL (0.2-1.0) Aspartate Amino Transferase (AST) 21 U/L (13-40) Alanine Aminotransferase (ALT) 21 U/L (7-40) Alkaline Phosphatase 72 U/L (46-116) Total Protein 6.7 g/dL (5.7-8.2) Albumin 4.0 g/dL (3.2-4.8) D-Dimer, Quantitative 2.08 mg/L FEU (0.0-0.49) Test 02/05/25 10:08 02/05/25 09:08 Troponin I High Sensitivity 46 ng/L (</=34) B-Type Natriuretic Peptide 320.26 pg/mL (0-100) Other Laboratory Tests 02/12/25 06:08 Brief Hx & Hospital Course: 54-year-old female with a known history of COPD, hypertension initially admitted to the hospital with the increasing shortness of breaths found to have acute hypoxic respiratory failure secondary to acute COPD exacerbation as well as severe pulmonary hypertension. Patient also maybe have a component of acute diastolic congestive heart failure exacerbation. Patient was given IV Solu- Medrol, 2D echo was done which shows EF of 60% but probably diastolic dysfunction as well as severe pulmonary hypertension. Cardiology recommended beta samaria and resume lisinopril. Patient is currently stable to be discharged. Patient is currently saturating more than 92% on room air. Patient was explained that you do have lymph nodes in the lungs as well as mediastinum close to the heart which could be reactive but need outpatient follow up with the PCP with a repeat CT chest to make sure resolution of lymph nodes otherwise needs further workup to rule out any cancer or malignancy. Condition at Discharge: Good Final Diagnosis/Problems List 54-year-old female with a known history of COPD, hypertension initially admitted to the hospital with the increasing shortness of breaths found to have 1. Acute hypoxic respiratory failure with the hypoxemia secondary to acute COPD exacerbation 2. Acute COPD exacerbation 3. Severe pulmonary hypertension 4. Hypertensive urgency 5. Acute diastolic congestive heart failure exacerbation 6. Mediastinal and bilateral hilar adenopathy likely reactive, outpatient follow up with the PCP with a repeat CT chest in two weeks if still persistent then needs further workup to make sure there is no underlying cancer out malignancy. -continue med nebs, Solu-Medrol, O2 supplementation- Follow up 2D echo cardiology consult Discharge Disposition: Home SNF Discharge Will this Physician continue t: No Discharge Instruct/Medications Diet: Cardiac 2g Na,low cholest Activity: No Restrictions, As Tolerated Follow Up/Referral: Please follow up with the PCP in two weeks with a repeat CT chest as an outpatient to make sure resolution of mediastinal and hilar lymphadenopathy otherwise needs further workup to rule out malignancy. Please follow up with Dr. Jean Claude Cain , loan adviser in 1-2 weeks Medications: Resume home medication, new prescription as prescribed. Scheduled Aspirin (Aspir-81), 1 TAB PO DAILY, (Reported) Hctz (Hydrochlorothiazide), 25 MG PO DAILY, (Reported) Lisinopril (Lisinopril), 1 TAB PO DAILY, (Reported) Methylprednisolone (Medrol Dosepak), 4 MG PO UD Metoprolol Tartrate (Lopressor), 25 MG PO BID Scheduled PRN Albuterol Sulfate (Ventolin Mdi), 90 MCG IN Q4HP PRN Discontinued Medications Cyclobenzaprine Hcl (Cyclobenzaprine Hcl), 1 TAB PO Q8HPRN PRN Hydrocodone-Acetaminophen (Hydrocodone Bitartrate/AC 5-325 mg), 1 TAB PO Q6HPRN PRN Discharge Statement: "Patient was advised to return to the ER or call 911 if any headaches, dizziness, shortness of breath, chest pain, abdominal pain, bleeding, fevers, or worsening of medical condition. Patient was counseled about treatment plan, medications, possible side effects, patientverbalized understanding. All questions were answered to the best of my ability. This discharge took greater then 30 minutes in planning, reviewing documentation, counseling the patient, and discussing with other team members." ASSESSMENT ASSESSMENT Assessment 54-year-old female with a known history of COPD, hypertension initially admitted to the hospital with the increasing shortness of breaths found to have 1. Acute hypoxic respiratory failure with the hypoxemia secondary to acute COPD exacerbation 2. Acute COPD exacerbation 3. Severe pulmonary hypertension 4. Hypertensive urgency 5. Acute diastolic congestive heart failure exacerbation 6. Mediastinal and bilateral hilar adenopathy likely reactive, outpatient follow up with the PCP with a repeat CT chest in two weeks if still persistent then needs further workup to make sure there is no underlying cancer out malignancy. -continue med nebs, Solu-Medrol, O2 supplementation- Follow up 2D echo cardiology consult Date of Service: Feb 12, 2025 Billing Provider: JOAQUIN SOLIS MD Common Visit Codes: 72697-WLB/OBS DISCH DAY >30min JOAQUIN SOLIS MD Feb 12, 2025 12:46
--- NOTE | 2025-02-13 00:02 | DVHPN2 ---
Progress Note - Dictate Date Seen: Feb 12, 2025 Medical Necessity Reason Pt with a Central, PICC or Fol: No Subjective Patient was seen and evaluated in follow up. Patient has no new complaints at this time. Echocardiogram shows LV EF of 60%. Patient is cardiac stable for discharge. Telemetry reviewed. vital signs Vital Sign Date Time Temp Pulse Resp B/P (MAP) Pulse Ox O2 Delivery O2 Flow Rate FiO2 02/12/25 12:46 98.1 71 15 138/90 (106) 99 98.1 02/12/25 12:11 Room Air* 0 21 objective GENERAL: Alert and oriented x 3. No acute distress. Obese. EYES: PERRL, EOMI. Anicteric. HENT: Moist mucous membranes. LUNGS: Clear to auscultation bilaterally. CARDIOVASCULAR: Regular rate and rhythm. ABDOMEN: Soft, nontender and nondistended. EXTREMITIES: No edema. NEUROLOGIC: No focal neurological deficits. SKIN: Warm, dry. laboratory and microbiology Laboratory Tests 02/12/25 06:08 Test 02/12/25 06:08 Range/Units Serum Glucose 98 74-106 mg/dL Problem List Acute respiratory failure with hypoxemia. Hypertensive urgency. COPD exacerbation. Acute diastolic HF exacerbation. Moderate pulmonary hypertension. Assessment/Plan Continued all current supportive medical care. Morphine and [place] for pain management. Aspirin, Metoprolol. Clonidine, Lisinopril. DVT prophylactics. IV Hydralazine for SBP > 150. Nitro SL. Additional plan as per the hospital course. Dietary Evaluation Review Comments: Cardiac Diet Wt Management Expected Outcomes/Goals: gradual wt loss Plan discussed with: Patient ELINOR PADRON MD Feb 13, 2025 00:02
== END 2025-02-12 13:30 | disposition home or self-care (01) | DRG 133 ==
LOC: ER 08:31 → OVERFLOW 13:17 → TELE-WESTW 15:19
PROVIDERS: ADMIT Hospitalist; ATTEND Hospitalist
DX: J96.01 Acute respiratory failure with hypoxia (principal); I50.33 Acute on chronic diastolic (congestive) heart failure; I27.20 Pulmonary hypertension, unspecified; I16.0 Hypertensive urgency; J44.1 Chronic obstructive pulmonary disease with (acute) exacerbation; I11.0 Hypertensive heart disease with heart failure; D25.9 Leiomyoma of uterus, unspecified; R59.0 Localized enlarged lymph nodes; F17.210 Nicotine dependence, cigarettes, uncomplicated; I25.10 Atherosclerotic heart disease of native coronary artery without angina pectoris; Z90.710 Acquired absence of both cervix and uterus; Z79.899 Other long term (current) drug therapy
CPT/HCPCS: 36415; 70490; 71045; 71275; 74176; 80048; 80053; 81001; 83880; 84484; 85025; 85379; 87086; 93005; 93306; 93970; 94640; 96365; 96375; G0378